=== PATIENT | male | born 1950 | race Caucasian/White ===

== ENCOUNTER 2023-07-12 13:51 | Observation (INO) ==
[2023-07-12 15:11] LABS: BASOPHILS # (AUTO) 0.1 X10^3/uL (0.0-0.1); BASOPHILS % (AUTO) 0.8 % (0.2-1.0); EOSINOPHILS # (AUTO) 0.3 x10^3/uL (0.0-0.2); EOSINOPHILS % (AUTO) 3.5 % (0.9-2.9); HEMATOCRIT 42.6 % (42.0-54.0); HEMOGLOBIN 14.2 g/dL (13.5-18.0); LYMPHOCYTES # (AUTO) 2.7 X10^3/uL (1.3-2.9); LYMPHOCYTES % (AUTO) 29.9 % (21.0-51.0); MEAN CORPUSCULAR HEMOGLOBIN 29.7 pg (27.0-34.0); MEAN CORPUSCULAR HGB CONC 33.3 g/dL (33.0-35.0); MEAN CORPUSCULAR VOLUME 89.1 fL (80.0-100.0); MEAN PLATELET VOLUME 7.8 fL (7.4-11.0); MONOCYTES # (AUTO) 0.6 x10^3/uL (0.3-0.8); MONOCYTES % (AUTO) 7.2 % (0.0-13.0); NEUTROPHILS # (AUTO) 5.3 x10^3/uL (2.2-4.8); NEUTROPHILS % (AUTO) 58.6 % (42.0-75.0); PLATELET COUNT 212 X10^3/uL (150.0-450.0); RED BLOOD COUNT 4.78 X10^6/uL (4.7-6.0); RED CELL DISTRIBUTION WIDTH 14.4 % (11.6-16.5)
[2023-07-12 15:20] LABS: INR 1.03 (0.8-1.3)
[2023-07-12 15:23] LABS: ALANINE AMINOTRANSFERASE 18 Units/L (12-78); ALBUMIN 3.9 g/dL (3.4-5.0); ALKALINE PHOSPHATASE 91 Units/L (46-116); ASPARTATE AMINO TRANSFERASE 15 Units/L (15-37); BLOOD UREA NITROGEN 14 mg/dL (7-18); CALCIUM 9.3 mg/dL (8.5-10.1); CARBON DIOXIDE 24.4 mmol/L (21-32); CHLORIDE 103 mmol/L (98-107); CHOL/HDL RATIO 2.4 (0.0-5.0); CHOLESTEROL 99 mg/dL (0-200); COR NA(FOR HYPERGLY) 143 mmol/L (136-145); CREATINE KINASE 105 Units/L (39-308); CREATININE 1.39 mg/dL (0.70-1.30); GLUCOSE 163 mg/dL (65-99); HDL CHOLESTEROL 42 mg/dL (40-60); POTASSIUM 4.7 mmol/L (3.5-5.1); SODIUM 141 mmol/L (136-145); TOTAL PROTEIN 7.9 g/dL (6.4-8.2); TRIGLYCERIDES 157 mg/dL (0-150); eGFR NON BLACK RACES 54 (>60)
--- NOTE | 2023-07-12 15:23 | DR.PSYCH ---
HPI Time Seen Time Seen by Provider: 07/12/23 15:23 PCP Primary Care Physician: atiya Complaint Chief Complaint:: woke at 9am as usual but had diff getting to the bathroom and called the spouse to get him up off the toilet. when back to his chair he was seeing animals that were not there. denies headache. able to use both extremities equally but has generalized weakness. this pt is usually very independent and does for his self at home Self Treatment fo Chief Complaint: went to bed at 10pm last night and got up at 9am this am COVID-19 Coronavirus risk:travel/contact w/high risk person: No Has patient experienced Coronavirus symptoms: No Source History Provided: Family Member Mode of Arrival Mode of Arrival: Wheelchair Timing Onset of Chief Complaint: 07/12/23 Context Presents With: Bizarre Behavior and Unclear Thinking Ideation: None Plan: None Medication Compliance: No Quality Quality: Confusion Hallucinations: Visual Associated signs and symptoms Intoxification: None PMH PMH Past Medical History: Yes Past Medical History: Coronary Artery Disease, Diabetes and Hypertension Past Surgical History: Yes Surgical History: Appendectomy, CABG/Valve Surgery and Cholecystectomy Past Surgical History Comment: cabg april 2023 bypasses x4 Family History History of Family Medical Conditions: Yes Family Medical History: Diabetes Mellitus, Cancer, Coronary Artery Disease and Hypertension Social History Alcohol Use: None Do you use any recreational Drugs:: No Lives With: Family Lives Where: Home Travel Risk Coronavirus risk:travel/contact w/high risk person: No Has patient experienced Coronavirus symptoms: No Infectious screening In the last 2 months have you had wt loss of >10#?: NO Have you had fever, night sweats or hemotysis?: No Have you traveled outside the country in the last 6 months?: No Isolation: Standard PE Vitals Vitals: Vital Signs Temperature 97.5 F Pulse Rate 74 Pulse Rate 74 Pulse Rate 75 Pulse Rate 75 Pulse Rate 76 Pulse Rate 77 Pulse Rate 77 Pulse Rate 80 Pulse Rate 84 Respiratory Rate 11 Respiratory Rate 11 Respiratory Rate 11 Respiratory Rate 12 Respiratory Rate 13 Respiratory Rate 14 Respiratory Rate 15 Respiratory Rate 18 Respiratory Rate 16 Blood Pressure 188/89 Blood Pressure 180/86 Blood Pressure 180/86 Blood Pressure 182/88 Blood Pressure 166/82 Blood Pressure 142/79 O2 Sat by Pulse Oximetry 98 O2 Sat by Pulse Oximetry 98 O2 Sat by Pulse Oximetry 98 O2 Sat by Pulse Oximetry 97 O2 Sat by Pulse Oximetry 98 O2 Sat by Pulse Oximetry 99 O2 Sat by Pulse Oximetry 96 ROR Labs Reviewed 07/12/23 15:03 07/12/23 15:03 Laboratory: WBC 9.0 X10^3/uL (3.6-10.0) 07/12/23 15:03 RBC 4.78 X10^6/uL (4.7-6.0) 07/12/23 15:03 Hgb 14.2 g/dL (13.5-18.0) 07/12/23 15:03 Hct 42.6 % (42.0-54.0) 07/12/23 15:03 MCV 89.1 fL (80.0-100.0) 07/12/23 15:03 MCH 29.7 pg (27.0-34.0) 07/12/23 15:03 MCHC 33.3 g/dL (33.0-35.0) 07/12/23 15:03 RDW 14.4 % (11.6-16.5) 07/12/23 15:03 Plt Count 212 X10^3/uL (150.0-450.0) 07/12/23 15:03 MPV 7.8 fL (7.4-11.0) 07/12/23 15:03 Neut % (Auto) 58.6 % (42.0-75.0) 07/12/23 15:03 Lymph % (Auto) 29.9 % (21.0-51.0) 07/12/23 15:03 Esmeralda % (Auto) 7.2 % (0.0-13.0) 07/12/23 15:03 Eos % (Auto) 3.5 % (0.9-2.9) H 07/12/23 15:03 Baso % (Auto) 0.8 % (0.2-1.0) 07/12/23 15:03 Neut # (Auto) 5.3 x10^3/uL (2.2-4.8) H 07/12/23 15:03 Lymph # (Auto) 2.7 X10^3/uL (1.3-2.9) 07/12/23 15:03 Esmeralda # (Auto) 0.6 x10^3/uL (0.3-0.8) 07/12/23 15:03 Eos # (Auto) 0.3 x10^3/uL (0.0-0.2) H 07/12/23 15:03 Baso # (Auto) 0.1 X10^3/uL (0.0-0.1) 07/12/23 15:03 Absolute Nucleated RBC 0.2 /100WBC 07/12/23 15:03 PT 13.3 SECONDS (11.8-14.3) 07/12/23 15:03 INR Target Range - 07/12/23 15:03 INR 1.03 (0.8-1.3) 07/12/23 15:03 APTT 28.3 SECONDS (22.9-36.5) 07/12/23 15:03 PTT Comment - 07/12/23 15:03 Fibrinogen 425 mg/dL (239-489) 07/12/23 15:03 Sodium 141 mmol/L (136-145) 07/12/23 15:03 Corrected Sodium 143 mmol/L (136-145) 07/12/23 15:03 Potassium 4.7 mmol/L (3.5-5.1) 07/12/23 15:03 Chloride 103 mmol/L (98-107) 07/12/23 15:03 Carbon Dioxide 24.4 mmol/L (21-32) 07/12/23 15:03 BUN 14 mg/dL (7-18) 07/12/23 15:03 Creatinine 1.39 mg/dL (0.70-1.30) H 07/12/23 15:03 Est GFR (MDRD) Af Amer > 60 (>60) 07/12/23 15:03 Est GFR (MDRD) Non-Af 54 (>60) L 07/12/23 15:03 Glucose 163 mg/dL (65-99) H 07/12/23 15:03 Calcium 9.3 mg/dL (8.5-10.1) 07/12/23 15:03 Corrected Calcium TNP 07/12/23 15:03 Total Bilirubin 0.20 mg/dL (0.2-1.0) 07/12/23 15:03 AST 15 Units/L (15-37) 07/12/23 15:03 ALT 18 Units/L (12-78) 07/12/23 15:03 Alkaline Phosphatase 91 Units/L (46-116) 07/12/23 15:03 Creatine Kinase 105 Units/L (39-308) 07/12/23 15:03 Troponin I High Sens 13.4 ng/L (4.0-60.0) 07/12/23 15:03 Total Protein 7.9 g/dL (6.4-8.2) 07/12/23 15:03 Albumin 3.9 g/dL (3.4-5.0) 07/12/23 15:03 Globulin 4.0 g/dL (2.5-4.5) 07/12/23 15:03 Albumin/Globulin Ratio 1.0 Ratio (1.1-2.1) L 07/12/23 15:03 Triglycerides 157 mg/dL (0-150) H 07/12/23 15:03 Cholesterol 99 mg/dL (0-200) 07/12/23 15:03 LDL Cholesterol, Calc 26 mg/dL (0-100) 07/12/23 15:03 HDL Cholesterol 42 mg/dL (40-60) 07/12/23 15:03 Cholesterol/HDL Ratio 2.4 (0.0-5.0) 07/12/23 15:03 Opioid Opioid Risk Tool Age (Anurag box if 16-45): No History of Preadolescent Sexual Abuse: No Total: 0 Total Score Risk Category: Low Risk Copyright: Luis Enrique MATOS predicting aberrant behaviors Discharge Plan Diagnosis Discharge Problem: Jose Manuel Bonnet syndrome, Weakness Discharge Plan Patient Disposition: 09 ADMITTED INPATIENT Condition: Stable Orders to Discharge Patient Discharge Orders: Transfer (Routine); Ordered 07/12/23 Ordered By: NICK PERKINS
--- NOTE | 2023-07-12 15:27 | CT ---
EXAM: BRAIN W/O CON HISTORY: hallucinations, weakness, poss stroke; COMPARISON: Head CT examination dated January 02, 2023 TECHNIQUE: Multiple axial images of the head were obtained from the skull base to the vertex without administrat ion of IV contrast. Sagittal and coronal reformatted images were performed. Automated exposure control (AEC) was utilized to adjust the MA and/or kV. FINDINGS: There is moderate sulcal and cisternal prominence as well as atherosclerotic change in the proximal i ntracranial carotid and vertebral arteries, which is not out of proportion to the patient's stated ag e. There is diffuse CT density alteration seen in the periventricular white matter of the high and mi d-convexity, which is likely in the setting of small vessel disease and not out of proportion to the patient's stated age. There is no pathologic ventricular dilatation without evidence for hydrocephalu s or herniation syndrome. No midline shift is evident. No acute intraparenchymal hemorrhage or mass c an be identified. If there remains a strong concern for any intra-cranial neoplasm, then follow-up wi th CT or MR imaging of the brain would be more sensitive to exclude any intra-cranial mass lesion. N o extra-axial fluid collections are seen. No alteration in the attenuation of the brain parenchyma ca n be identified to suggest acute or subacute ischemic change. Also, if clinical symptoms are concerni ng for an acute CVA, then follow-up MRI with DWI sequencing is recommended. The extracranial structur es are unremarkable. The paranasal sinuses and mastoid air cells are relatively clear. IMPRESSION: 1. No acute intracranial process or acute bleed identified. If there remains strong clinical concern for an acute CVA/ischemic event in this setting, then follow-up brain MRI with diffusion-weighted se quencing should be considered to definitively exclude acute cerebral ischemia, based on medical histo ry and neurological assessment. 2. Age-appropriate intra-cranial changes of advancing age. THIS IS AN ELECTRONICALLY VERIFIED FINAL REPORT 07/12/2023 3:23 PM - Electronically signed by Pierce Ashley MD
[2023-07-12] MEDS: NS 1,000 ML IV 1,000 ML IV SCH ×2 (15:53→21:42)
--- NOTE | 2023-07-12 16:21 | EKG ---
Test Reason : poss stroke Blood Pressure : */* mmHG Vent. Rate : 77 BPM Atrial Rate : 77 BPM P-R Int : 172 ms QRS Dur : 76 ms QT Int : 390 ms P-R-T Axes : 25 -1 139 degrees QTc Int : 441 ms Normal sinus rhythm Minimal voltage criteria for LVH, may be normal variant ( R in aVL ) Inferior infarct (cited on or before 02-JAN-2023) Cannot rule out Anterior infarct , age undetermined Abnormal ECG When compared with ECG of 02-JAN-2023 21:14, Inverted T waves have replaced nonspecific T wave abnormality in Lateral leads Confirmed by Sharath Tong MD ([id number]) on 07/13/2023 7:35:57 AM Referred By: Confirmed By: Sharath Tong MD
--- NOTE | 2023-07-12 16:35 | MRI ---
EXAM: BRAIN W/O CON HISTORY: R/O STROKE; COMPARISON: Head CT 07/12/2023 TECHNIQUE: Multiplanar multisequence MRI of the brain was obtained without contrast using standard departmental protocol. FINDINGS: Diffusion sequences show no abnormal signal. No evidence for acute ischemia. Minimal age-related findings include central and cortical atrophy with abnormal signal in the periven tricular white matter, most likely the micro-ischemic changes of aging. Otherwise batista and white matter have normal differentiation. There is no mass, shift, or hemorrhage. Cerebellar tonsils are at an appropriate level. There is normal signal flow void in the central vessels. No abnormal signal on susceptibility sequen anshul. No fluid in the sinuses or mucosal thickening to suggest sinusitis. There is no mastoid effusion. IMPRESSION: 1. No acute findings THIS IS AN ELECTRONICALLY VERIFIED FINAL REPORT 07/12/2023 4:32 PM - Electronically signed by Cash Cedillo MD
--- NOTE | 2023-07-12 16:41 | RAD ---
EXAM: CHEST, 1 VIEW HISTORY: POSS CVA; COMPARISON: 01/02/2023 FINDINGS: Prior median sternotomy. Multiple surgical clips project over the left hemithorax. The cardiac silh ouette is unremarkable . The lungs are clear without focal infiltrate or effusion. The bony thorax i s unremarkable. IMPRESSION: No acute cardiopulmonary disease. THIS IS AN ELECTRONICALLY VERIFIED FINAL REPORT 07/12/2023 4:38 PM - Electronically signed by Butch Glasgow MD
[2023-07-12] MEDS: APRESOLINE INJ 20 MG VIAL IVP ONE ×2 (19:25→20:12)
[2023-07-12 21:26] VITALS: BMI 24.9
--- NOTE | 2023-07-13 02:10 | TELESTROKE ---
[facility] Consult Date of Consult Date of Exam: 07/13/23 Time of Arrival to the ED: 02:10 Allergies Allergies Allergy/AdvReac Type Severity Reaction Status Date / Time No Known Drug Allergies Allergy Unknown Verified 07/12/23 14:35 Vital Signs Vital Signs: Temp Pulse Pulse Resp BP BP Pulse Ox 07/13/23 00:00 98.6 F 87 20 139/63 97 07/12/23 21:00 07/12/23 21:12 07/12/23 20:55 97.6 F 94 H 22 145/67 99 07/12/23 20:30 95 H 14 98 07/12/23 20:30 139/65 07/12/23 20:15 90 26 H 98 07/12/23 20:11 177/71 07/12/23 20:11 88 17 98 07/12/23 20:00 198/75 07/12/23 20:00 87 14 99 07/12/23 19:45 83 14 98 07/12/23 19:44 179/84 07/12/23 19:44 84 16 99 07/12/23 19:30 79 12 99 07/12/23 19:30 192/93 07/12/23 19:30 192/93 07/12/23 19:30 79 12 99 07/12/23 19:18 203/98 07/12/23 19:18 77 13 98 07/12/23 19:15 78 11 L 98 07/12/23 19:02 182/91 07/12/23 19:02 78 21 98 07/12/23 19:00 215/95 07/12/23 19:00 78 14 98 07/12/23 18:45 76 19 98 07/12/23 18:32 200/92 07/12/23 18:32 76 12 99 07/12/23 18:30 75 13 99 07/12/23 18:15 72 12 97 07/12/23 18:00 73 11 L 98 07/12/23 18:00 194/91 07/12/23 17:45 74 11 L 98 07/12/23 17:30 188/89 07/12/23 17:30 74 11 L 98 07/12/23 17:15 75 11 L 98 07/12/23 17:00 75 12 97 07/12/23 17:00 180/86 07/12/23 17:00 180/86 07/12/23 16:50 76 13 98 07/12/23 16:30 77 14 07/12/23 16:27 77 15 07/12/23 16:26 182/88 07/12/23 15:00 80 18 166/82 99 07/12/23 14:39 97.5 F L 84 16 142/79 96 O2 Del Method 07/13/23 00:00 Room Air 07/12/23 21:00 Room Air 07/12/23 21:12 Room Air 07/12/23 20:55 Room Air 07/12/23 20:30 07/12/23 20:30 07/12/23 20:15 07/12/23 20:11 07/12/23 20:11 07/12/23 20:00 07/12/23 20:00 07/12/23 19:45 07/12/23 19:44 07/12/23 19:44 07/12/23 19:30 07/12/23 19:30 07/12/23 19:30 07/12/23 19:30 07/12/23 19:18 07/12/23 19:18 07/12/23 19:15 07/12/23 19:02 07/12/23 19:02 07/12/23 19:00 07/12/23 19:00 07/12/23 18:45 07/12/23 18:32 07/12/23 18:32 07/12/23 18:30 07/12/23 18:15 07/12/23 18:00 07/12/23 18:00 07/12/23 17:45 07/12/23 17:30 07/12/23 17:30 07/12/23 17:15 07/12/23 17:00 07/12/23 17:00 07/12/23 17:00 07/12/23 16:50 07/12/23 16:30 07/12/23 16:27 07/12/23 16:26 07/12/23 15:00 07/12/23 14:39 History of Present Illness History of Present Illness: [facility] Patient Name:Patrice Gonzales Date of :1950 Identification Number: Date of Service:07/12/2023 14:52:00 Diagnosis:R44.1 - Visual hallucinations Impression: 72 year old male with history of age-related macular degeneration presenting with visual release hallucinations, also known as Jose Manuel Bonnet syndrome. Our recommendations are outlined below. Recommendations: Stroke/Telemetry Floor Neuro Checks Bedside Swallow Eval DVT Prophylaxis IV Fluids, Normal Saline Head of Bed 30 Degrees Euglycemia and Avoid Hyperthermia (PRN Acetaminophen) Continue home meds. MRI brain without contrast to rule out alternative etiology (e.g. stroke). Mainstay of treat for Jose Manuel Bonnet syndrome is reassurance that these are not psychotic hallucinations and that they are related to patient's vision problem. Sometimes melatonin or quetiapine have been shown to help. Sign Out: Discussed with Emergency Department Provider Advanced Imaging: Advanced Imaging Deferred because: Non-disabling symptoms as verified by the patient; no cortical signs so not consistent with LVO Stroke not suspected with clinical presentation and exam Metrics: Last Known Well: 07/11/2023 22:00:00 [facility] Notification Time: 07/12/2023 14:51:59 Arrival Time: 07/13/2023 13:51:00 Stamp Time: 07/12/2023 14:52:00 Initial Response Time: 07/12/2023 15:00:05Symptoms: visual hallucinations and generalized weakness. Initial patient interaction: 07/12/2023 15:04:11 NIHSS Assessment Completed: 07/12/2023 15:10:00Patient is not a candidate for Thrombolytic. Thrombolytic Medical Decision: 07/12/2023 15:10:00Patient was not deemed candidate for Thrombolytic because of following reasons: Last Well Known Above 4.5 Hours. 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 I personally Reviewed the CT Head and it Showed no acute infarct or hemorrhage. Primary Provider Notified of Diagnostic Impression and Management Plan on: 07/12/2023 15:30:00 History of Present Illness:Patient is a 72 year old Male. Patient was brought by private transportation with symptoms of visual hallucinations and generalized weakness. Patient is a 72 year old male with a history of age-related macular degeneration, DM presenting with acute onset of visual hallucinations. Started yesterday but recurred during a doctor's visit today, largely seeing faces of people and animals, sometime twisted or distorted. Patient is aware that these are not real. Patient denies any focal or lateralized weakness, numbness, aphasia or dysarthria. Past Medical History: Hypertension Diabetes Mellitus Coronary Artery Disease Medications: No Anticoagulant use Antiplatelet use:Yesaspirin Reviewed EMR for current medications Allergies: Reviewed Social History: Smoking: No Family History: There is no family history of premature cerebrovascular disease pertinent to this consultation ROS : 14 Points Review of Systems was performed and was negative except mentioned in HPI. Past Surgical History: There Is No Surgical History Contributory To Todays Visit Examination: BP(139/67),Pulse(87),Blood Glucose(151) 1A: Level of Consciousness - Alert; keenly responsive+ 0 1B: Ask Month and Age - Both Questions Right+ 0 1C: Blink Eyes & Squeeze Hands - Performs Both Tasks+ 0 2: Test Horizontal Extraocular Movements - Normal+ 0 3: Test Visual Plata - No Visual Loss+ 0 4: Test Facial Palsy (Use Grimace if Obtunded) - Normal symmetry+ 0 5A: Test Left Arm Motor Drift - No Drift for 10 Seconds+ 0 5B: Test Right Arm Motor Drift - No Drift for 10 Seconds+ 0 6A: Test Left Leg Motor Drift - No Drift for 5 Seconds+ 0 6B: Test Right Leg Motor Drift - No Drift for 5 Seconds+ 0 7: Test Limb Ataxia (FNF/Heel-Melchor) - No Ataxia+ 0 8: Test Sensation - Normal; No sensory loss+ 0 9: Test Language/Aphasia - Normal; No aphasia+ 0 10: Test Dysarthria - Normal+ 0 11: Test Extinction/Inattention - No abnormality+ 0 NIHSS Score:0 Pre-Morbid Modified Nell Scale:3 Points = Moderate disability; requiring some help, but able to walk without assistance Spoke with :Dr. Vidal This consult was conducted in real time using interactive audio and video technology. Patient was informed of the technology being used for this visit and agreed to proceed. Patient located in hospital and provider located at home/office setting. Patient is being evaluated for possible acute neurologic impairment and high probability of imminent or life-threatening deterioration. I spent total of 45 minutes providing care to this patient, including time for face to face visit via telemedicine, review of medical records, imaging studies and discussion of findings with providers, the patient and/or family. Dr Reed Butler [facility] For Inpatient follow-up with [facility] physician please call [facility] . This is not an outpatient service. Post hospital discharge, please contact hospital directly. Please call or reconsult our service if there are any clinical or diagnostic changes. Medical Decision Making 07/12/23 15:03 07/12/23 15:03 Labs: Laboratory Results - last 24 hr 07/12/23 15:03 WBC 9.0 RBC 4.78 Hgb 14.2 Hct 42.6 MCV 89.1 MCH 29.7 MCHC 33.3 RDW 14.4 Plt Count 212 MPV 7.8 Neut % (Auto) 58.6 Lymph % (Auto) 29.9 Beadle % (Auto) 7.2 Eos % (Auto) 3.5 H Baso % (Auto) 0.8 Neut # (Auto) 5.3 H Lymph # (Auto) 2.7 Beadle # (Auto) 0.6 Eos # (Auto) 0.3 H Baso # (Auto) 0.1 Absolute Nucleated RBC 0.2 PT 13.3 INR Target Range - INR 1.03 APTT 28.3 PTT Comment - Fibrinogen 425 Sodium 141 Corrected Sodium 143 Potassium 4.7 Chloride 103 Carbon Dioxide 24.4 BUN 14 Creatinine 1.39 H Est GFR (MDRD) Af Amer > 60 Est GFR (MDRD) Non-Af 54 L Glucose 163 H Calcium 9.3 Corrected Calcium TNP Total Bilirubin 0.20 AST 15 ALT 18 Alkaline Phosphatase 91 Creatine Kinase 105 Troponin I High Sens 13.4 Total Protein 7.9 Albumin 3.9 Globulin 4.0 Albumin/Globulin Ratio 1.0 L Triglycerides 157 H Cholesterol 99 LDL Cholesterol, Calc 26 HDL Cholesterol 42 Cholesterol/HDL Ratio 2.4
[2023-07-13 03:02] LABS: BILIRUBIN,URINE NEGATIVE (NEGATIVE); BLOOD/HEMOGLOBIN,URINE NEGATIVE (NEGATIVE); GLUCOSE, URINE NEGATIVE (NEGATIVE); KETONES,URINE 2+ (NEGATIVE); LEUKOCYTE ESTERASE ,URINE NEGATIVE (NEGATIVE); NITRITES,URINE NEGATIVE (NEGATIVE); PROTEIN,URINE 3+ (NEGATIVE); UROBILINOGEN,URINE NORMAL (NORMAL)
[2023-07-13 03:07] LABS: APPEARANCE,URINE CLEAR (CLEAR); BACTERIA,URINE NEGATIVE /HPF (NEGATIVE); COLOR,URINE YELLOW (YELLOW); HYALINE CASTS, URINE FEW /LPF (NEGATIVE); RBC,URINE 0-2 /HPF (0-3); SQUAMOUS EPITHELIAL CELL,UR RARE /HPF (NEGATIVE)
[2023-07-13 06:14] LABS: BASOPHILS % (AUTO) 0.6 % (0.2-1.0); EOSINOPHILS # (AUTO) 0.2 x10^3/uL (0.0-0.2); EOSINOPHILS % (AUTO) 3.4 % (0.9-2.9); HEMATOCRIT 36.4 % (42.0-54.0); HEMOGLOBIN 12.4 g/dL (13.5-18.0); LYMPHOCYTES % (AUTO) 31.6 % (21.0-51.0); MEAN CORPUSCULAR HEMOGLOBIN 29.9 pg (27.0-34.0); MEAN CORPUSCULAR HGB CONC 34.2 g/dL (33.0-35.0); MEAN CORPUSCULAR VOLUME 87.5 fL (80.0-100.0); MEAN PLATELET VOLUME 7.8 fL (7.4-11.0); MONOCYTES # (AUTO) 0.5 x10^3/uL (0.3-0.8); MONOCYTES % (AUTO) 7.2 % (0.0-13.0); NEUTROPHILS # (AUTO) 3.6 x10^3/uL (2.2-4.8); NEUTROPHILS % (AUTO) 57.2 % (42.0-75.0); PLATELET COUNT 170 X10^3/uL (150.0-450.0); RED BLOOD COUNT 4.16 X10^6/uL (4.7-6.0); WHITE BLOOD COUNT 6.3 X10^3/uL (3.6-10.0)
[2023-07-13 06:43] LABS: ALBUMIN 3.2 g/dL (3.4-5.0); ALKALINE PHOSPHATASE 79 Units/L (46-116); ASPARTATE AMINO TRANSFERASE 13 Units/L (15-37); CALCIUM 8.6 mg/dL (8.5-10.1); CARBON DIOXIDE 26.9 mmol/L (21-32); COR CA(FOR HYPOALB) 9.2 mg/dL (8.5-10.1); CREATININE 1.02 mg/dL (0.70-1.30); GLUCOSE 123 mg/dL (65-99); TOTAL PROTEIN 6.5 g/dL (6.4-8.2); eGFR NON BLACK RACES > 60 (>60)
[2023-07-13 07:23] LABS: CHLORIDE 103 mmol/L (98-107); COR NA(FOR HYPERGLY) 142 mmol/L (136-145); POTASSIUM 3.8 mmol/L (3.5-5.1); SODIUM 141 mmol/L (136-145)
--- NOTE | 2023-07-13 09:56 | DR.H&P ---
H&P History & Physical for Day of: H&P Date: 07/13/23 Chief Complaint Chief Complaint: weakness, visual hallucinations History of Present Illness History of Present Illness: Mr Gonzales is a 72y/o male with a PMH of CAD s/p CABG, DM, HTN, HLD and macular degeneration presented with generalized weakness, elevated BP and visual hallucinations. Patient was seeing animals that were not present. He had CABG in April 2023 in [place]. His BP medications were changed and since then his BP has been elevated. In the ER, trop (-), CXR (-). Brain CT and MRI-brain were both negative for any acute changes. Tele-neuro consult was done and stated that patient's visual hallucinations are likely part of the macular degeneration that patient has. He was given IV hydralazine and admitted for further management. He was kept NPO. He is feeling better this morning. He denies any trouble with swallowing or any focal neurological symptoms. His BP was 187/91. Labs/imaging reviewed - Hgb 12.4 BUN/Cr: 15/1.02 Trop (-) -UA (-) -CXR: no acute process -CT-head and MRI-brain: no acute changes Plan: Continue telemetry, start ADA diet, resume home medications. Monitor BP. Patient used to be on amlodipine and lisinopril before but now takes HCTZ and metoprolol tartrate. Stop IVF. Will hold HCTZ, start amlodipine 10 mg daily. Replace electrolytes as per protocol. PT consult. Monitor AM labs/imaging. Past Medical History Past Medical History: Coronary Artery Disease, Diabetes and Hypertension Past Surgical History Surgical History: Appendectomy, CABG/Valve Surgery, Cholecystectomy and Other Family History Family Medical History: Diabetes Mellitus, Cancer, Coronary Artery Disease and Hypertension Social History Does patient currently use any type of tobacco product: No Type of Tobacco Use: None Does any household member use tobacco: No Alcohol Use: None Drug Use: None Medications Home Medications: Home Medications Medication Instructions Recorded Confirmed Type famotidine 20 mg tablet 20 mg PO BID 01/02/23 07/12/23 History hydrochlorothiazide 25 mg tablet 25 mg PO QDAY 01/02/23 07/12/23 History insulin NPH isoph U-100 human 100 10 unit subcut BID 01/02/23 07/12/23 History unit/mL subcutaneous suspension (Humulin N NPH U-100 Insulin (isophane susp)) metformin 1,000 mg tablet 1,000 mg PO BID 01/02/23 07/12/23 History simvastatin 20 mg tablet 20 mg PO QPM 01/02/23 07/12/23 History acetaminophen 300 mg-codeine 30 mg 1 tab PO QID PRN 07/12/23 07/12/23 History tablet aspirin 81 mg tablet,delayed 81 mg PO QDAY 07/12/23 07/12/23 History release docusate sodium 100 mg capsule 100 - 300 mg PO QDAY PRN 07/12/23 07/12/23 History dorzolamide 2 % eye drops 1 drp ophthalmic (eye) BID 07/12/23 07/12/23 History gabapentin 400 mg capsule 400 mg PO QID 07/12/23 07/12/23 History levetiracetam 750 mg 750 mg PO QDAY 07/12/23 07/12/23 History tablet,extended release 24 hr metoprolol tartrate 25 mg tablet 12.5 mg PO BID 07/12/23 07/12/23 History Allergies Allergies Allergy/AdvReac Type Severity Reaction Status Date / Time No Known Drug Allergies Allergy Unknown Verified 07/12/23 14:35 Labs 07/13/23 05:34 07/13/23 05:34 Labs: Laboratory WBC 6.3 X10^3/uL (3.6-10.0) 07/13/23 05:34 RBC 4.16 X10^6/uL (4.7-6.0) L 07/13/23 05:34 Hgb 12.4 g/dL (13.5-18.0) L 07/13/23 05:34 Hct 36.4 % (42.0-54.0) L 07/13/23 05:34 MCV 87.5 fL (80.0-100.0) 07/13/23 05:34 MCH 29.9 pg (27.0-34.0) 07/13/23 05:34 MCHC 34.2 g/dL (33.0-35.0) 07/13/23 05:34 RDW 14.0 % (11.6-16.5) 07/13/23 05:34 Plt Count 170 X10^3/uL (150.0-450.0) 07/13/23 05:34 MPV 7.8 fL (7.4-11.0) 07/13/23 05:34 Neut % (Auto) 57.2 % (42.0-75.0) 07/13/23 05:34 Lymph % (Auto) 31.6 % (21.0-51.0) 07/13/23 05:34 [place] % (Auto) 7.2 % (0.0-13.0) 07/13/23 05:34 Eos % (Auto) 3.4 % (0.9-2.9) H 07/13/23 05:34 Baso % (Auto) 0.6 % (0.2-1.0) 07/13/23 05:34 Neut # (Auto) 3.6 x10^3/uL (2.2-4.8) 07/13/23 05:34 Lymph # (Auto) 2.0 X10^3/uL (1.3-2.9) 07/13/23 05:34 [place] # (Auto) 0.5 x10^3/uL (0.3-0.8) 07/13/23 05:34 Eos # (Auto) 0.2 x10^3/uL (0.0-0.2) 07/13/23 05:34 Baso # (Auto) 0.0 X10^3/uL (0.0-0.1) 07/13/23 05:34 Absolute Nucleated RBC 0.1 /100WBC 07/13/23 05:34 PT 13.3 SECONDS (11.8-14.3) 07/12/23 15:03 INR Target Range - 07/12/23 15:03 INR 1.03 (0.8-1.3) 07/12/23 15:03 APTT 28.3 SECONDS (22.9-36.5) 07/12/23 15:03 PTT Comment - 07/12/23 15:03 Fibrinogen 425 mg/dL (239-489) 07/12/23 15:03 Sodium 141 mmol/L (136-145) 07/13/23 05:34 Corrected Sodium 142 mmol/L (136-145) 07/13/23 05:34 Potassium 3.8 mmol/L (3.5-5.1) 07/13/23 05:34 Chloride 103 mmol/L (98-107) 07/13/23 05:34 Carbon Dioxide 26.9 mmol/L (21-32) 07/13/23 05:34 BUN 15 mg/dL (7-18) 07/13/23 05:34 Creatinine 1.02 mg/dL (0.70-1.30) 07/13/23 05:34 Est GFR (MDRD) Af Amer > 60 (>60) 07/13/23 05:34 Est GFR (MDRD) Non-Af > 60 (>60) 07/13/23 05:34 Glucose 123 mg/dL (65-99) H 07/13/23 05:34 POC Glucose (mg/dL) 130 mg/dL (65-99) H 07/13/23 05:54 Calcium 8.6 mg/dL (8.5-10.1) 07/13/23 05:34 Corrected Calcium 9.2 mg/dL (8.5-10.1) 07/13/23 05:34 Total Bilirubin 0.30 mg/dL (0.2-1.0) 07/13/23 05:34 AST 13 Units/L (15-37) L 07/13/23 05:34 ALT 18 Units/L (12-78) 07/12/23 15:03 Alkaline Phosphatase 79 Units/L (46-116) 07/13/23 05:34 Creatine Kinase 105 Units/L (39-308) 07/12/23 15:03 Troponin I High Sens 13.4 ng/L (4.0-60.0) 07/12/23 15:03 Total Protein 6.5 g/dL (6.4-8.2) 07/13/23 05:34 Albumin 3.2 g/dL (3.4-5.0) L 07/13/23 05:34 Globulin 3.3 g/dL (2.5-4.5) 07/13/23 05:34 Albumin/Globulin Ratio 1.0 Ratio (1.1-2.1) L 07/13/23 05:34 Triglycerides 157 mg/dL (0-150) H 07/12/23 15:03 Cholesterol 99 mg/dL (0-200) 07/12/23 15:03 LDL Cholesterol, Calc 26 mg/dL (0-100) 07/12/23 15:03 HDL Cholesterol 42 mg/dL (40-60) 07/12/23 15:03 Cholesterol/HDL Ratio 2.4 (0.0-5.0) 07/12/23 15:03 Specimen Type Clean catch urine 07/13/23 02:45 Urine Color Yellow (YELLOW) 07/13/23 02:45 Urine Appearance Clear (CLEAR) 07/13/23 02:45 Urine pH 6.0 (5.0 - 8.0) 07/13/23 02:45 Ur Specific [place] 1.020 (1.000-1.030) 07/13/23 02:45 Urine Protein 3+ (NEGATIVE) 07/13/23 02:45 Urine Glucose (UA) Negative (NEGATIVE) 07/13/23 02:45 Urine Ketones 2+ (NEGATIVE) 07/13/23 02:45 Urine Blood Negative (NEGATIVE) 07/13/23 02:45 Urine Nitrite Negative (NEGATIVE) 07/13/23 02:45 Urine Bilirubin Negative (NEGATIVE) 07/13/23 02:45 Urine Urobilinogen Normal (NORMAL) 07/13/23 02:45 Ur Leukocyte Esterase Negative (NEGATIVE) 07/13/23 02:45 Urine RBC 0-2 /HPF (0-3) 07/13/23 02:45 Urine WBC None seen /HPF (0-5) 07/13/23 02:45 Ur Squamous Epith Cells Rare /HPF (NEGATIVE) 07/13/23 02:45 Urine Bacteria Negative /HPF (NEGATIVE) 07/13/23 02:45 Hyaline Casts Few /LPF (NEGATIVE) 07/13/23 02:45 Urine Mucus Few /HPF (NEGATIVE) 07/13/23 02:45 Ur Culture Indicated? No/not indicated 07/13/23 02:45 Review of Systems Constitutional: Weakness Eyes: Vision Change ENT: No Symptoms Reported Respiratory: No Symptoms Reported Cardiovascular: No Symptoms Reported Gastrointestinal: No Symptoms Reported Genitourinary: No Symptoms Reported Musculoskeletal: Back Pain Skin: No Symptoms Reported Neurological: No Symptoms Reported Physical Exam Vital Signs: Vital Signs Temperature 97.0 F Temperature 97.8 F Pulse Rate [Brachial] 74 Pulse Rate [Brachial] 78 Respiratory Rate 15 Respiratory Rate 20 Blood Pressure [Right Arm] 187/91 Blood Pressure [Right Arm] 169/79 O2 Sat by Pulse Oximetry 96 O2 Sat by Pulse Oximetry 97 Oriented: Normal Eyes: Normal Throat: Normal Respiratory: RLL Rales and LLL Rales Cardiovascular: Normal Auscultation: Bowel Sounds: Normal Palpation: Normal Tenderness: Normal Skin: Normal Musculoskeletal: Back:Paraspinous Psychiatric: Normal Mood Description: Calm Affect: Normal Speech Pattern: Clear and Appropriate Assessment/Plan (1) Accelerated essential hypertension: Status: Acute (2) Dehydration: Status: Acute (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 transplanted heart: [place] heart Qualified Code(s): I25.810 - Atherosclerosis of coronary artery bypass graft(s) without angina pectoris Status: Acute Review H&P Reviewed: Yes Patient was examined?: Yes
[2023-07-13] MEDS ORDERED: HYDROCHLOROTHIAZIDE 25 MG TAB PO SCH (10:00)
[2023-07-13] MEDS: LEVETIRACETAM 750 MG PO SCH (10:00)
[2023-07-13] MEDS: TRUSOPT PLUS (OPHTH) OP SCH (10:00)
[2023-07-13] MEDS: PEPCID TAB 20 MG PO SCH (10:50)
[2023-07-13] MEDS: NORVASC TAB 10 MG PO SCH (10:50)
[2023-07-13] MEDS: ASPIRIN EC 81 MG PO SCH (10:50)
[2023-07-13] MEDS: LOPRESSOR TAB 25 MG PO SCH (11:03)
[2023-07-13 12:34] LABS: ALANINE AMINOTRANSFERASE 16 Units/L (12-78)
[2023-07-13 13:08] LABS: BLOOD UREA NITROGEN 15 mg/dL (7-18)
[2023-07-13] MEDS: NovoLIN R (or HumuLIN R) SUBCUT PRN (18:04)
[2023-07-13] MEDS: TORADOL 15 MG VIAL IVP PRN (18:06)
[2023-07-13] MEDS ORDERED: GLUCOPHAGE ONE (20:12)
[2023-07-13] MEDS: GLUCOPHAGE PO SCH (20:34)
[2023-07-13] MEDS: ZOCOR TAB 20 MG PO SCH (20:35)
[2023-07-13] MEDS: SNACK - Diabetic Appropriate PO SCH (20:51)
[2023-07-13] MEDS: PATIENT'S HOME MEDICATION OP SCH (21:13)
[2023-07-14 05:57] VITALS: RESP 20
[2023-07-14 06:24] LABS: BASOPHILS % (AUTO) 0.7 % (0.2-1.0); EOSINOPHILS # (AUTO) 0.2 x10^3/uL (0.0-0.2); EOSINOPHILS % (AUTO) 3.8 % (0.9-2.9); HEMATOCRIT 36.1 % (42.0-54.0); HEMOGLOBIN 12.4 g/dL (13.5-18.0); LYMPHOCYTES # (AUTO) 1.5 X10^3/uL (1.3-2.9); LYMPHOCYTES % (AUTO) 29.2 % (21.0-51.0); MEAN CORPUSCULAR HEMOGLOBIN 29.9 pg (27.0-34.0); MEAN CORPUSCULAR HGB CONC 34.3 g/dL (33.0-35.0); MEAN CORPUSCULAR VOLUME 87.2 fL (80.0-100.0); MEAN PLATELET VOLUME 7.7 fL (7.4-11.0); MONOCYTES # (AUTO) 0.4 x10^3/uL (0.3-0.8); MONOCYTES % (AUTO) 7.8 % (0.0-13.0); NEUTROPHILS # (AUTO) 3.1 x10^3/uL (2.2-4.8); NEUTROPHILS % (AUTO) 58.5 % (42.0-75.0); PLATELET COUNT 168 X10^3/uL (150.0-450.0); RED BLOOD COUNT 4.15 X10^6/uL (4.7-6.0); RED CELL DISTRIBUTION WIDTH 14.1 % (11.6-16.5); WHITE BLOOD COUNT 5.2 X10^3/uL (3.6-10.0)
[2023-07-14 06:57] LABS: CHLORIDE 104 mmol/L (98-107); POTASSIUM 3.6 mmol/L (3.5-5.1); SODIUM 140 mmol/L (136-145)
[2023-07-14 06:58] LABS: BLOOD UREA NITROGEN 14 mg/dL (7-18); CREATININE 1.07 mg/dL (0.70-1.30); eGFR NON BLACK RACES > 60 (>60)
[2023-07-14 06:59] LABS: CALCIUM 8.7 mg/dL (8.5-10.1); COR NA(FOR HYPERGLY) 141 mmol/L (136-145); GLUCOSE 130 mg/dL (65-99); MAGNESIUM 1.6 mg/dL (2.0-2.9)
[2023-07-14] MEDS ORDERED: GLUCOPHAGE ONE (08:29)
[2023-07-14] MEDS ORDERED: CONSULT PHARMACY - POTASSIUM & MAGNESIUM XX SCH (09:00)
[2023-07-14] MEDS: HYDROCHLOROTHIAZIDE 25 MG TAB PO SCH (09:18)
[2023-07-14 09:20] LABS: ALANINE AMINOTRANSFERASE 18 Units/L (12-78); ALBUMIN 3.4 g/dL (3.4-5.0); ALKALINE PHOSPHATASE 74 Units/L (46-116); ASPARTATE AMINO TRANSFERASE 16 Units/L (15-37); TOTAL PROTEIN 6.7 g/dL (6.4-8.2)
[2023-07-14] MEDS: MAG-OX TAB PO SCH (09:44)
[2023-07-14] MEDS: K-DUR TAB 20 MEQ PO SCH (09:44)
[2023-07-14 15:57] VITALS: BP 189/91; PULSE 72; TEMP 98.1; O2SAT 98
== END 2023-07-14 12:50 | disposition home health service (06) ==
LOC: ER 13:51 → MED/SURG 13:51
PROVIDERS: ADMIT Family Medicine; ATTEND Internal Medicine

== ENCOUNTER 2024-04-12 16:15 | Observation (INO) ==
[2024-04-12 16:49] VITALS: BMI 23.8
--- NOTE | 2024-04-12 17:17 | EKG ---
Test Reason : confusion Blood Pressure : */* mmHG Vent. Rate : 104 BPM Atrial Rate : 104 BPM P-R Int : 154 ms QRS Dur : 74 ms QT Int : 306 ms P-R-T Axes : 28 47 184 degrees QTc Int : 402 ms Sinus tachycardia Cannot rule out Anteroseptal infarct (cited on or before 02-JAN-2023) Abnormal ECG When compared with ECG of 12-JUL-2023 16:11, Criteria for Inferior infarct are no longer present Questionable change in initial forces of Septal leads Nonspecific T wave abnormality now evident in Anterior leads Confirmed by Sharath Tong MD ([id number]) on 04/13/2024 6:36:47 AM Referred By: Confirmed By: Sharath Tong MD
[2024-04-12 17:29] LABS: BASOPHILS % (AUTO) 0.8 % (0.2-1.0); EOSINOPHILS # (AUTO) 0.2 x10^3/uL (0.0-0.2); EOSINOPHILS % (AUTO) 3.5 % (0.9-2.9); HEMATOCRIT 41.1 % (42.0-54.0); HEMOGLOBIN 14.4 g/dL (13.5-18.0); LYMPHOCYTES # (AUTO) 0.8 X10^3/uL (1.3-2.9); LYMPHOCYTES % (AUTO) 13.7 % (21.0-51.0); MEAN CORPUSCULAR HEMOGLOBIN 30.6 pg (27.0-34.0); MEAN CORPUSCULAR HGB CONC 35.1 g/dL (33.0-35.0); MEAN CORPUSCULAR VOLUME 87.2 fL (80.0-100.0); MEAN PLATELET VOLUME 8.2 fL (7.4-11.0); MONOCYTES # (AUTO) 0.6 x10^3/uL (0.3-0.8); MONOCYTES % (AUTO) 10.4 % (0.0-13.0); NEUTROPHILS % (AUTO) 71.6 % (42.0-75.0); PLATELET COUNT 63 X10^3/uL (150.0-450.0); RED BLOOD COUNT 4.71 X10^6/uL (4.7-6.0); RED CELL DISTRIBUTION WIDTH 13.9 % (11.6-16.5); WHITE BLOOD COUNT 5.6 X10^3/uL (3.6-10.0)
[2024-04-12 17:32] LABS: INR 1.06 (0.8-1.3)
[2024-04-12 17:42] LABS: ALANINE AMINOTRANSFERASE 70 Units/L (12-78); ALKALINE PHOSPHATASE 95 Units/L (46-116); ASPARTATE AMINO TRANSFERASE 75 Units/L (15-37); BLOOD UREA NITROGEN 20 mg/dL (7-18); CALCIUM 9.3 mg/dL (8.5-10.1); CHLORIDE 99 mmol/L (98-107); COR NA(FOR HYPERGLY) 140 mmol/L (136-145); CREATINE KINASE 75 Units/L (39-308); CREATININE 1.42 mg/dL (0.70-1.30); GLUCOSE 205 mg/dL (65-99); POTASSIUM 4.2 mmol/L (3.5-5.1); SODIUM 137 mmol/L (136-145); TOTAL PROTEIN 7.6 g/dL (6.4-8.2); eGFR NON BLACK RACES 52 (>60)
--- NOTE | 2024-04-12 17:44 | CT ---
EXAM: BRAIN W/O CON HISTORY: trouble getting out of his chair and the pt wasn't able to make it to the bathroom without wetting on the floor. 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 Radiation dose: 888.54 mGy-cm total DLP FINDINGS: No abnormal areas of acute attenuation in the brain parenchyma. Watson-white differentiation remains intact. No intracranial, extra-axial, fluid collection. No hemorrhage. Periventricular chronic microvascular disease. No mass, mass effect or midline shift. Age related brain parenchymal global atrophy. No ventriculomegaly. No acute fracture. Sinuses are well aerated. Mastoid air cells are well aerated. Globes and intra-orbital contents are unremarkable. IMPRESSION: No acute intracranial abnormality identified. THIS IS AN ELECTRONICALLY VERIFIED FINAL REPORT 04/12/2024 5:41 PM - Electronically signed by Donald Hernandez MD
[2024-04-12 19:08] LABS: BILIRUBIN,URINE NEGATIVE (NEGATIVE); BLOOD/HEMOGLOBIN,URINE 1+ (NEGATIVE); GLUCOSE, URINE 4+ (NEGATIVE); KETONES,URINE 1+ (NEGATIVE); LEUKOCYTE ESTERASE ,URINE NEGATIVE (NEGATIVE); NITRITES,URINE NEGATIVE (NEGATIVE); PROTEIN,URINE 2+ (NEGATIVE); UROBILINOGEN,URINE NORMAL (NORMAL)
[2024-04-12 19:16] LABS: APPEARANCE,URINE CLEAR (CLEAR); COLOR,URINE YELLOW (YELLOW)
[2024-04-12 19:17] LABS: BACTERIA,URINE TRACE /HPF (NEGATIVE); RBC,URINE 0-2 /HPF (0-3); SQUAMOUS EPITHELIAL CELL,UR RARE /HPF (NEGATIVE); YEAST,URINE RARE /HPF (NEGATIVE)
--- NOTE | 2024-04-12 19:39 | DR.DIZZY ---
HPI Time seen Time Seen by Provider: 04/12/24 16:59 PCP Primary Care Physician: Rl Complaint Chief Complaint Doctor Comments: 73 yo M, hx of CAD, HTN, DM, states pt was fine this morning when he woke up and pt was able to walk to his chair. About an hour and a half ago she noticed that the pt had trouble getting out of his chair and the pt wasn't able to get out of his chair to walk to the bathroom. noticed that pt was having difficulty speaking, and seemed confused. By arrival to the ER, states that pt slowly began getting better, and by my exam, states that his speech is back to baseline. Denies other complaints. Chief Complaint:: Weakness, Aphasia COVID-19 Coronavirus risk:travel/contact w/high risk person: No Has patient experienced Coronavirus symptoms: No Source History Provided: Patient and Significant Other Mode of Arrival Mode of Arrival: Wheelchair Timing Onset of Chief Complaint: 04/12/24 Context Stroke Symptoms: Aphasia and Acute confusion PMH PMH Past Medical History: Yes Past Medical History: Coronary Artery Disease, Diabetes and Hypertension Past Surgical History: Yes Surgical History: Appendectomy, CABG/Valve Surgery, Cholecystectomy and Other Past Surgical History Comment: Cataracts Family History History of Family Medical Conditions: Yes Family Medical History: Diabetes Mellitus, Cancer, Coronary Artery Disease and Hypertension Social History Alcohol Use: None Do you use any recreational Drugs:: No Lives With: Spouse Lives Where: Home Travel Risk Coronavirus risk:travel/contact w/high risk person: No Has patient experienced Coronavirus symptoms: No Infectious screening Have you traveled outside the country in the last 6 months?: No Isolation: Standard ROS Review of Systems Neurological: Weakness and Speech Problem (expressive aphasia) All Other Systems: Reviewed and Negative PE Vital Signs Vitals: Vital Signs Temperature 98.7 F Pulse Rate 103 Pulse Rate 101 Pulse Rate 103 Pulse Rate 104 Pulse Rate 102 Pulse Rate 104 Pulse Rate 103 Pulse Rate 98 Pulse Rate 105 Respiratory Rate 20 Respiratory Rate 18 Respiratory Rate 16 Blood Pressure 157/78 Blood Pressure 161/78 Blood Pressure 163/88 Blood Pressure 102/64 O2 Sat by Pulse Oximetry 96 O2 Sat by Pulse Oximetry 96 O2 Sat by Pulse Oximetry 97 O2 Sat by Pulse Oximetry 96 O2 Sat by Pulse Oximetry 98 O2 Sat by Pulse Oximetry 98 O2 Sat by Pulse Oximetry 98 O2 Sat by Pulse Oximetry 94 General Limitations: No Limitations General Appearance: Alert and In No Apparent Distress Head Head Exam: Normal Inspection Eyes Eye exam: Normal Appearance ENT ENT Exam: Normal Exam, Normal Oropharynx and Normal External Ear Exam Neck Neck Exam: Normal Inspection and Full ROM Chest Chest Inspection: Normal Inspection Respiratory Respiratory Exam: Normal Lung Sounds Bilat Cardiovascular Cardiovascular Exam: Regular Rate and Normal Rhythm Abdominal Exam Abdominal Exam: Normal Inspection, Normal Bowel Sounds and Soft Rectal Rectal Exam: Deferred Extremeties Extremities Exam: Normal Inspection and Full ROM Back Back Exam: Normal Inspection and Full ROM Neurologic Neurological Exam: Alert and Oriented X3 Psychiatric Psychiatric Exam: Normal Affect and Normal Mood Skin Skin Exam: Warm, Dry, Intact and Normal Color ROR Labs Reviewed Laboratory Results Reviewed?: Yes 04/12/24 17:06 04/12/24 17:06 Laboratory: WBC 5.6 X10^3/uL (3.6-10.0) 04/12/24 17:06 RBC 4.71 X10^6/uL (4.7-6.0) 04/12/24 17:06 Hgb 14.4 g/dL (13.5-18.0) 04/12/24 17:06 Hct 41.1 % (42.0-54.0) L 04/12/24 17:06 MCV 87.2 fL (80.0-100.0) 04/12/24 17:06 MCH 30.6 pg (27.0-34.0) 04/12/24 17:06 MCHC 35.1 g/dL (33.0-35.0) H 04/12/24 17:06 RDW 13.9 % (11.6-16.5) 04/12/24 17:06 Plt Count 63 X10^3/uL (150.0-450.0) L 04/12/24 17:06 MPV 8.2 fL (7.4-11.0) 04/12/24 17:06 Neut % (Auto) 71.6 % (42.0-75.0) 04/12/24 17:06 Lymph % (Auto) 13.7 % (21.0-51.0) L 04/12/24 17:06 [place] % (Auto) 10.4 % (0.0-13.0) 04/12/24 17:06 Eos % (Auto) 3.5 % (0.9-2.9) H 04/12/24 17:06 Baso % (Auto) 0.8 % (0.2-1.0) 04/12/24 17:06 Neut # (Auto) 4.0 x10^3/uL (2.2-4.8) 04/12/24 17:06 Lymph # (Auto) 0.8 X10^3/uL (1.3-2.9) L 04/12/24 17:06 [place] # (Auto) 0.6 x10^3/uL (0.3-0.8) 04/12/24 17:06 Eos # (Auto) 0.2 x10^3/uL (0.0-0.2) 04/12/24 17:06 Baso # (Auto) 0.0 X10^3/uL (0.0-0.1) 04/12/24 17:06 Absolute Nucleated RBC 0.2 /100WBC 04/12/24 17:06 PT 13.5 SECONDS (11.8-14.3) 04/12/24 17:06 INR Target Range - 04/12/24 17:06 INR 1.06 (0.8-1.3) 04/12/24 17:06 APTT 26.7 SECONDS (22.9-36.5) 04/12/24 17:06 PTT Comment - 04/12/24 17:06 Sodium 137 mmol/L (136-145) 04/12/24 17:06 Corrected Sodium 140 mmol/L (136-145) 04/12/24 17:06 Potassium 4.2 mmol/L (3.5-5.1) 04/12/24 17:06 Chloride 99 mmol/L (98-107) 04/12/24 17:06 Carbon Dioxide 24.0 mmol/L (21-32) 04/12/24 17:06 BUN 20 mg/dL (7-18) H 04/12/24 17:06 Creatinine 1.42 mg/dL (0.70-1.30) H 04/12/24 17:06 Est GFR (MDRD) Af Amer > 60 (>60) 04/12/24 17:06 Est GFR (MDRD) Non-Af 52 (>60) L 04/12/24 17:06 Glucose 205 mg/dL (65-99) H 04/12/24 17:06 Calcium 9.3 mg/dL (8.5-10.1) 04/12/24 17:06 Corrected Calcium TNP 04/12/24 17:06 Magnesium 2.0 mg/dL (2.0-2.9) 04/12/24 17:06 Total Bilirubin 0.30 mg/dL (0.2-1.0) 04/12/24 17:06 AST 75 Units/L (15-37) H 04/12/24 17:06 ALT 70 Units/L (12-78) 04/12/24 17:06 Alkaline Phosphatase 95 Units/L (46-116) 04/12/24 17:06 Creatine Kinase 75 Units/L (39-308) 04/12/24 17:06 Troponin I High Sens 10.0 ng/L (4.0-60.0) 04/12/24 17:06 B-Natriuretic Peptide 40.6 pg/mL (0-79) 04/12/24 17:06 Total Protein 7.6 g/dL (6.4-8.2) 04/12/24 17:06 Albumin 4.0 g/dL (3.4-5.0) 04/12/24 17:06 Globulin 3.6 g/dL (2.5-4.5) 04/12/24 17:06 Albumin/Globulin Ratio 1.1 Ratio (1.1-2.1) 04/12/24 17:06 Specimen Type Clean catch urine 04/12/24 18:56 Urine Color Yellow (YELLOW) 04/12/24 18:56 Urine Appearance Clear (CLEAR) 04/12/24 18:56 Urine pH 6.0 (5.0 - 8.0) 04/12/24 18:56 Ur Specific [place] 1.020 (1.000-1.030) 04/12/24 18:56 Urine Protein 2+ (NEGATIVE) 04/12/24 18:56 Urine Glucose (UA) 4+ (NEGATIVE) 04/12/24 18:56 Urine Ketones 1+ (NEGATIVE) 04/12/24 18:56 Urine Blood 1+ (NEGATIVE) 04/12/24 18:56 Urine Nitrite Negative (NEGATIVE) 04/12/24 18:56 Urine Bilirubin Negative (NEGATIVE) 04/12/24 18:56 Urine Urobilinogen Normal (NORMAL) 04/12/24 18:56 Ur Leukocyte Esterase Negative (NEGATIVE) 04/12/24 18:56 Urine RBC 0-2 /HPF (0-3) 04/12/24 18:56 Urine WBC 0-2 /HPF (0-5) 04/12/24 18:56 Ur Squamous Epith Cells Rare /HPF (NEGATIVE) 04/12/24 18:56 Urine Bacteria Trace /HPF (NEGATIVE) 04/12/24 18:56 Urine Yeast Rare /HPF (NEGATIVE) 04/12/24 18:56 Ur Culture Indicated? No/not indicated 04/12/24 18:56 Opioid Opioid Risk Tool Age (Anurag box if 16-45): No History of Preadolescent Sexual Abuse: No Total: 0 Total Score Risk Category: Low Risk Copyright: Luis Enrique MATOS predicting aberrant behaviors Discharge Plan Diagnosis Discharge Problem: Brain TIA, Aphasia Discharge Plan Patient Disposition: ADMITTED INPATIENT Condition: Stable Prescriptions: No Action potassium chloride 10 mEq capsule, extended release 10 meq PO QDAY PRN famotidine 20 mg tablet 20 mg PO BID amlodipine 10 mg tablet 10 mg PO QDAY rosuvastatin 10 mg tablet 10 mg PO QDAY dapagliflozin propanediol [Farxiga] 10 mg tablet 10 mg PO QDAY lactulose [Enulose] 10 gram/15 mL solution 10 g PO QDAY PRNQty: 100 0RF metformin 1,000 mg tablet 1,000 mg PO BID gabapentin 400 mg capsule 400 mg PO QID acetaminophen-codeine 300-30 mg tablet 1 tab PO QID PRN aspirin 81 mg Tablet,Delayed Release (Dr/Ec) 81 mg PO QDAY levetiracetam 750 mg tablet extended release 24 hr 750 mg PO QDAY hydrochlorothiazide 25 mg tablet 25 mg PO QDAY 30 Days Qty: 30 0RF ondansetron 4 mg tablet,disintegrating 4 mg PO TID PRN (Reason: nausea and vomiting) Qty: 14 0RF Health Concerns: Post Hospitalization: new medications and changes needed to prevent readmission or further decline. Pt educated and given instructions on all concerns. Plan of Treatment: Continue with present treatment and follow up plan. Pt is to keep follow up ap pointment as instructed and take medications as ordered. Orders to Discharge Patient Discharge Orders: Transfer (Routine); Ordered 04/12/24 Ordered By: Nato Fiore Follow ups/Referrals Follow ups/Referrals: George Shine [Primary Care Provider] - 3 days Instructions Stand Alone Forms: Find Help Web Site, Post Hospital Follow Up Care ADDITIONAL NOTES Additional Notes Additional Notes: admitted to Dr Renee at 1930.
--- NOTE | 2024-04-12 20:51 | EKG ---
Test Reason : TIA Blood Pressure : */* mmHG Vent. Rate : 103 BPM Atrial Rate : * BPM P-R Int : * ms QRS Dur : 64 ms QT Int : 514 ms P-R-T Axes : * 30 121 degrees QTc Int : 673 ms Sinus tachycardia Poor R-wave progression Low voltage QRS Abnormal ECG When compared with ECG of 12-APR-2024 17:08, (Unconfirmed) Minimal criteria for Anteroseptal infarct are no longer present QT has lengthened Confirmed by Sharath Tong MD ([id number]) on 04/13/2024 6:38:22 AM Referred By: Confirmed By: Sharath Tong MD
[2024-04-12] MEDS ORDERED: PATIENT'S HOME MEDICATION (Metformin 1,000 mg tablet) PO SCH (21:00)
[2024-04-12] MEDS: NEURONTIN CAP 400 MG PO SCH (21:47)
[2024-04-12] MEDS: PEPCID TAB 20 MG PO SCH (21:48)
[2024-04-12] MEDS: NS 1,000 ML IV 1,000 ML IV SCH (21:48)
--- NOTE | 2024-04-12 21:50 | RAD ---
EXAM:CHEST, 1 VIEWHISTORY:trouble getting out of his chair and the pt wasn't able to make it to the bathroom without wetting on the floor. states pt has MRSA in the left foot.;COMPARISON:March 06, 2024TECHNIQUE:Chest radiographic imaging, AP portable projection, 1 imageFINDINGS:No cardiomegaly.Status post median sternotomy/CABG.No focal airspace disease.No pleural effusion.No pneumothorax.No acute osseous abnormality.IMPRESSION:No imaging findings of acute cardiopulmonary disease.THIS IS AN ELECTRONICALLY VERIFIED FINAL REPORT04/12/2024 9:47 PM - Electronically signed by Donald Hernandez MD
--- NOTE | 2024-04-13 02:49 | EKG ---
Test Reason : TIA Blood Pressure : */* mmHG Vent. Rate : 103 BPM Atrial Rate : 103 BPM P-R Int : 172 ms QRS Dur : 84 ms QT Int : 304 ms P-R-T Axes : 9 10 162 degrees QTc Int : 398 ms Sinus tachycardia Possible Left atrial enlargement Poor R-wave progression Inferior infarct , age undetermined Abnormal ECG When compared with ECG of 12-APR-2024 20:29, (Unconfirmed) Inferior infarct -present QT has shortened Confirmed by Sharath Tong MD ([id number]) on 04/13/2024 6:39:49 AM Referred By: Confirmed By: Sharath Tong MD
[2024-04-13] MEDS: ROBITUSSIN DM PO PRN (06:11)
[2024-04-13] MEDS: GLUCOPHAGE PO SCH (06:11)
[2024-04-13 06:20] LABS: BASOPHILS % (AUTO) 0.9 % (0.2-1.0); EOSINOPHILS % (AUTO) 1.5 % (0.9-2.9); HEMATOCRIT 34.9 % (42.0-54.0); HEMOGLOBIN 12.5 g/dL (13.5-18.0); LYMPHOCYTES # (AUTO) 0.7 X10^3/uL (1.3-2.9); LYMPHOCYTES % (AUTO) 21.3 % (21.0-51.0); MEAN CORPUSCULAR HEMOGLOBIN 30.5 pg (27.0-34.0); MEAN CORPUSCULAR HGB CONC 35.7 g/dL (33.0-35.0); MEAN CORPUSCULAR VOLUME 85.5 fL (80.0-100.0); MEAN PLATELET VOLUME 8.1 fL (7.4-11.0); MONOCYTES # (AUTO) 0.6 x10^3/uL (0.3-0.8); MONOCYTES % (AUTO) 17.7 % (0.0-13.0); NEUTROPHILS # (AUTO) 1.9 x10^3/uL (2.2-4.8); NEUTROPHILS % (AUTO) 58.6 % (42.0-75.0); PLATELET COUNT 52 X10^3/uL (150.0-450.0); RED BLOOD COUNT 4.09 X10^6/uL (4.7-6.0); RED CELL DISTRIBUTION WIDTH 13.7 % (11.6-16.5); WHITE BLOOD COUNT 3.2 X10^3/uL (3.6-10.0)
[2024-04-13] MEDS: GLUCOPHAGE ONE (06:20)
[2024-04-13 06:38] LABS: ALANINE AMINOTRANSFERASE 93 Units/L (12-78); ALBUMIN 3.4 g/dL (3.4-5.0); ALKALINE PHOSPHATASE 90 Units/L (46-116); ASPARTATE AMINO TRANSFERASE 100 Units/L (15-37); BLOOD UREA NITROGEN 19 mg/dL (7-18); CALCIUM 8.4 mg/dL (8.5-10.1); CARBON DIOXIDE 23.1 mmol/L (21-32); CHLORIDE 101 mmol/L (98-107); CHOL/HDL RATIO 1.4 (0.0-5.0); CHOLESTEROL < 50 mg/dL (0-200); COR NA(FOR HYPERGLY) 139 mmol/L (136-145); CREATININE 1.13 mg/dL (0.70-1.30); GLUCOSE 167 mg/dL (65-99); HDL CHOLESTEROL 37 mg/dL (40-60); MAGNESIUM 1.8 mg/dL (2.0-2.9); POTASSIUM 3.9 mmol/L (3.5-5.1); SODIUM 137 mmol/L (136-145); TOTAL PROTEIN 6.6 g/dL (6.4-8.2); TRIGLYCERIDES 53 mg/dL (0-150); eGFR NON BLACK RACES > 60 (>60)
--- NOTE | 2024-04-13 08:35 | RAD ---
EXAM:Portable chestHISTORY:Altered mental status, TIACOMPARISON:04/12/2024FINDINGS:Patient is status post median sternotomy and CABG. Hypoinflation accentuates the heart size. It likely upper limits normal. Reena are normal. Aorta is calcified. Lungs appear free of acute infiltrates. No pleural effusions identified. Bony thorax is unremarkable.IMPRESSION:Lungs hypoinflated but free of acute infiltratesTHIS IS AN ELECTRONICALLY VERIFIED FINAL REPORT04/13/2024 8:32 AM - Electronically signed by Jose Manuel Cuellar MD
--- NOTE | 2024-04-13 08:47 | EKG ---
Test Reason : TIA Blood Pressure : */* mmHG Vent. Rate : 100 BPM Atrial Rate : 100 BPM P-R Int : 158 ms QRS Dur : 82 ms QT Int : 334 ms P-R-T Axes : 24 13 184 degrees QTc Int : 430 ms Normal sinus rhythm Anterior infarct , age undetermined Abnormal ECG When compared with ECG of 13-APR-2024 02:27, No significant change was found Confirmed by Sharath Tong MD ([id number]) on 04/13/2024 1:45:21 PM Referred By: Confirmed By: Sharath Tong MD
[2024-04-13] MEDS: ASPIRIN EC 81 MG PO SCH (08:50)
[2024-04-13] MEDS: CRESTOR TAB 10 MG PO SCH (08:50)
[2024-04-13] MEDS: HYDROCHLOROTHIAZIDE 25 MG TAB PO SCH (08:51)
[2024-04-13] MEDS: NORVASC TAB 10 MG PO SCH (08:51)
[2024-04-13] MEDS: KEPPRA TAB 500 MG PO SCH (08:53)
[2024-04-13] MEDS ORDERED: LEVETIRACETAM 750 MG PO SCH (09:00)
[2024-04-13] MEDS ORDERED: CONSULT PHARMACY - POTASSIUM & MAGNESIUM XX SCH (09:37)
[2024-04-13] MEDS: FARXIGA PO SCH (09:55)
[2024-04-13] MEDS: PLAVIX PO SCH (10:07)
[2024-04-13] MEDS: KEPPRA TAB 500 MG PO NR (10:07)
[2024-04-13] MEDS: NS 1,000 ML IV 1,000 ML with MAGNESIUM SULFATE 50% INJ VIAL 1 G IV SCH (10:11)
[2024-04-13] MEDS: VANCOMYCIN IV *PREMIX 1 G/200 ML BAG 1 G/200 ML PIGGYBACK IV SCH (10:50)
--- NOTE | 2024-04-13 11:12 | DR.H&P ---
H&P History & Physical for Day of: H&P Date: 04/13/24 Chief Complaint Chief Complaint: difficulty speaking lower extremity weakness History of Present Illness History of Present Illness: Patient is a 73-year-old male with a past medical history of hypertension, diabetes, CAD, seizure disorder, presenting with lower extremity weakness and difficulty speaking. Per his , patient yesterday afternoon at 1 PM had difficulty ambulating and speaking. He was taken to the ER. In the ER it appears that his speech was back to baseline. He does remain weak in his lower extremities. Labs/imaging: WBC 3.2, hemoglobin 12.5, pl atelets 52, sodium 137, potassium 3.9, creatinine 1.13, glucose 167, magnesium 1.8, UA negative, CT of the brain revealed no acute intracranial findings, chest x-ray was negative for any acute cardiopulmonary findings. Blood culture prelim positive Gram stain. Patient was admitted for TIA, altered mental status, aphasia, hypomagnesemia. He was started on IV fluids normal saline at 75 mL/h. On exam the only focal deficits that was noted was patient having difficulty lifting up bilateral lower extremities. Is difficult at this time to determine if this is due to a stroke or severe weakness. Due to debility. Will order MRI for further evaluation. Will also order carotid ultrasound, echo. Will start patient on aspirin and Plavix. Will also start patient on IV vancomycin due to nonhealing wound on the left heel. Will consult general surgery for further evaluation. Replete electrolytes per protocol. Otherwise continue with current treatment plan. Continue closely monitor and follow-up labs/imaging. Time spent for clinical assessment, reviewing labs/imaging, physical exam, de cision making and documentation greater than 45 mins. Past Medical History Past Medical History: Coronary Artery Disease, Diabetes and Hypertension Past Surgical History Surgical History: Appendectomy, CABG/Valve Surgery, Cholecystectomy and Other Family History Family Medical History: Diabetes Mellitus, Cancer, Coronary Artery Disease and Hypertension Social History Alcohol Use: None Medications Home Medications: Home Medications Medication Instructions Recorded Confirmed Type metformin 1,000 mg tablet 1,000 mg PO BID 01/02/23 04/12/24 History acetaminophen 300 mg-codeine 30 mg 1 tab PO QID PRN 07/12/23 04/12/24 History tablet aspirin 81 mg tablet,delayed 81 mg PO QDAY 07/12/23 04/12/24 History release gabapentin 400 mg capsule 400 mg PO QID 07/12/23 04/12/24 History levetiracetam 750 mg 750 mg PO QDAY 07/12/23 04/12/24 History tablet,extended release 24 hr amlodipine 10 mg tablet 10 mg PO QDAY 09/18/23 04/12/24 History dapagliflozin propanediol 10 mg 10 mg PO QDAY 09/18/23 04/12/24 History tablet (Farxiga) famotidine 20 mg tablet 20 mg PO BID 09/18/23 04/12/24 History potassium chloride 10 mEq 10 meq PO QDAY PRN 09/18/23 04/12/24 History capsule,extended release rosuvastatin 10 mg tablet 10 mg PO QDAY 09/18/23 04/12/24 History Allergies Allergies Allergy/AdvReac Type Severity Reaction Status Date / Time No Known Drug Allergies Allergy Unknown Verified 04/12/24 16:49 Labs 04/13/24 05:28 04/13/24 05:28 Labs: Laboratory WBC 3.2 X10^3/uL (3.6-10.0) L 04/13/24 05:28 RBC 4.09 X10^6/uL (4.7-6.0) L 04/13/24 05:28 Hgb 12.5 g/dL (13.5-18.0) L 04/13/24 05:28 Hct 34.9 % (42.0-54.0) L 04/13/24 05:28 MCV 85.5 fL (80.0-100.0) 04/13/24 05:28 MCH 30.5 pg (27.0-34.0) 04/13/24 05:28 MCHC 35.7 g/dL (33.0-35.0) H 04/13/24 05:28 RDW 13.7 % (11.6-16.5) 04/13/24 05:28 Plt Count 52 X10^3/uL (150.0-450.0) L 04/13/24 05:28 MPV 8.1 fL (7.4-11.0) 04/13/24 05:28 Neut % (Auto) 58.6 % (42.0-75.0) 04/13/24 05:28 Lymph % (Auto) 21.3 % (21.0-51.0) 04/13/24 05:28 [place] % (Auto) 17.7 % (0.0-13.0) H 04/13/24 05:28 Eos % (Auto) 1.5 % (0.9-2.9) 04/13/24 05:28 Baso % (Auto) 0.9 % (0.2-1.0) 04/13/24 05:28 Neut # (Auto) 1.9 x10^3/uL (2.2-4.8) L 04/13/24 05:28 Lymph # (Auto) 0.7 X10^3/uL (1.3-2.9) L 04/13/24 05:28 [place] # (Auto) 0.6 x10^3/uL (0.3-0.8) 04/13/24 05:28 Eos # (Auto) 0.0 x10^3/uL (0.0-0.2) 04/13/24 05:28 Baso # (Auto) 0.0 X10^3/uL (0.0-0.1) 04/13/24 05:28 Absolute Nucleated RBC 0.1 /100WBC 04/13/24 05:28 PT 14.9 SECONDS (11.8-14.3) 04/13/24 05:28 INR Target Range - 04/13/24 05:28 INR 1.20 (0.8-1.3) 04/13/24 05:28 APTT 28.8 SECONDS (22.9-36.5) 04/13/24 05:28 PTT Comment - 04/13/24 05:28 Sodium 137 mmol/L (136-145) 04/13/24 05:28 Corrected Sodium 139 mmol/L (136-145) 04/13/24 05:28 Potassium 3.9 mmol/L (3.5-5.1) 04/13/24 05:28 Chloride 101 mmol/L (98-107) 04/13/24 05:28 Carbon Dioxide 23.1 mmol/L (21-32) 04/13/24 05:28 BUN 19 mg/dL (7-18) H 04/13/24 05:28 Creatinine 1.13 mg/dL (0.70-1.30) 04/13/24 05:28 Est GFR (MDRD) Af Amer > 60 (>60) 04/13/24 05:28 Est GFR (MDRD) Non-Af > 60 (>60) 04/13/24 05:28 Glucose 167 mg/dL (65-99) H 04/13/24 05:28 Calcium 8.4 mg/dL (8.5-10.1) L 04/13/24 05:28 Corrected Calcium TNP 04/13/24 05:28 Magnesium 1.8 mg/dL (2.0-2.9) L 04/13/24 05:28 Total Bilirubin 0.30 mg/dL (0.2-1.0) 04/13/24 05:28 AST 100 Units/L (15-37) H 04/13/24 05:28 ALT 93 Units/L (12-78) H 04/13/24 05:28 Alkaline Phosphatase 90 Units/L (46-116) 04/13/24 05:28 Creatine Kinase 67 Units/L (39-308) 04/13/24 08:10 Troponin I High Sens 14.2 ng/L (4.0-60.0) 04/13/24 08:10 B-Natriuretic Peptide 40.6 pg/mL (0-79) 04/12/24 17:06 Total Protein 6.6 g/dL (6.4-8.2) 04/13/24 05:28 Albumin 3.4 g/dL (3.4-5.0) 04/13/24 05:28 Globulin 3.2 g/dL (2.5-4.5) 04/13/24 05:28 Albumin/Globulin Ratio 1.1 Ratio (1.1-2.1) 04/13/24 05:28 Triglycerides 53 mg/dL (0-150) 04/13/24 05:28 Cholesterol < 50 mg/dL (0-200) 04/13/24 05:28 LDL Cholesterol, Calc 2 mg/dL (0-100) 04/13/24 05:28 HDL Cholesterol 37 mg/dL (40-60) L 04/13/24 05:28 Cholesterol/HDL Ratio 1.4 (0.0-5.0) 04/13/24 05:28 Specimen Type Clean catch urine 04/12/24 18:56 Urine Color Yellow (YELLOW) 04/12/24 18:56 Urine Appearance Clear (CLEAR) 04/12/24 18:56 Urine pH 6.0 (5.0 - 8.0) 04/12/24 18:56 Ur Specific [place] 1.020 (1.000-1.030) 04/12/24 18:56 Urine Protein 2+ (NEGATIVE) 04/12/24 18:56 Urine Glucose (UA) 4+ (NEGATIVE) 04/12/24 18:56 Urine Ketones 1+ (NEGATIVE) 04/12/24 18:56 Urine Blood 1+ (NEGATIVE) 04/12/24 18:56 Urine Nitrite Negative (NEGATIVE) 04/12/24 18:56 Urine Bilirubin Negative (NEGATIVE) 04/12/24 18:56 Urine Urobilinogen Normal (NORMAL) 04/12/24 18:56 Ur Leukocyte Esterase Negative (NEGATIVE) 04/12/24 18:56 Urine RBC 0-2 /HPF (0-3) 04/12/24 18:56 Urine WBC 0-2 /HPF (0-5) 04/12/24 18:56 Ur Squamous Epith Cells Rare /HPF (NEGATIVE) 04/12/24 18:56 Urine Bacteria Trace /HPF (NEGATIVE) 04/12/24 18:56 Urine Yeast Rare /HPF (NEGATIVE) 04/12/24 18:56 Ur Culture Indicated? No/not indicated 04/12/24 18:56 Review of Systems Constitutional: No Symptoms Reported Eyes: No Symptoms Reported ENT: No Symptoms Reported Respiratory: No Symptoms Reported Cardiovascular: No Symptoms Reported Gastrointestinal: No Symptoms Reported Genitourinary: No Symptoms Reported Musculoskeletal: Other (weakness bilateral lower extremities ) Skin: No Symptoms Reported Neurological: No Symptoms Reported Physical Exam Vital Signs: Vital Signs Temperature 99.6 F Temperature 98.7 F Temperature 98.7 F Pulse Rate [Left Radial] 102 Pulse Rate [Left Radial] 102 Pulse Rate [Left Radial] 102 Respiratory Rate 19 Respiratory Rate 18 Respiratory Rate 18 Blood Pressure [Left Arm] 140/72 Blood Pressure [Left Arm] 147/75 Blood Pressure [Left Arm] 147/75 O2 Sat by Pulse Oximetry 91 O2 Sat by Pulse Oximetry 91 O2 Sat by Pulse Oximetry 91 Oriented: Normal Eyes: Normal Ear: Normal Nose: Normal Throat: Normal Respiratory: Clear Throughout Cardiovascular: Normal : Normal Auscultation: Bowel Sounds: Normal Palpation: Normal Tenderness: Normal Skin: Normal Musculoskeletal: Motor Deficit (lifting up bilateral lower extremities, able to move foot and toes, sensation intact ) Psychiatric: Normal Mood Description: Calm and Appropriate Affect: Normal Speech Pattern: Clear and Appropriate Assessment/Plan (1) Brain TIA: Status: Acute (2) Aphasia: Status: Acute (3) Non-healing wound of left heel: Status: Acute (4) Bacteremia: Status: Acute Review H&P Reviewed: Yes Patient was examined?: Yes
[2024-04-13] MEDS: NovoLIN R (or HumuLIN R) SUBCUT PRN (12:37)
[2024-04-13] MEDS ORDERED: GLUCOPHAGE ONE (16:31)
--- NOTE | 2024-04-13 16:48 | VAS ---
EXAM: CAROTID US HISTORY: TIA, AMS; COMPARISON: None available. TECHNIQUE: Multiple batista scale, duplex and color flow Doppler images of the right and left carotid arterial syst em were obtained. The vertebral arterial system was evaluated as well. FINDINGS: Nonocclusive color flow Doppler is seen throughout the right and left carotid arterial system. There is moderate atherosclerotic plaque formation of the bilateral carotid bulbs and proximal ICAs w ith associated intimal thickening but without evidence for high-grade stenosis (>70%) or occlusion of the carotid arteries. The right and left vertebral artery demonstrate antegrade flow. There is patent flow and normal duplex waveforms within the right and left external carotid arteries. Peak right ICA velocity: 81 centimeter/seconds. Peak right CCA velocity: 111 centimeter/seconds. Right ICA to CCA ratio: 1.6. Peak left ICA velocity: 67 centimeter/seconds. Peak left CCA velocity: 121 centimeter/seconds. Left ICA to CCA ratio: 1.1. IMPRESSION: No hemodynamically significant carotid artery stenosis is seen. Moderate bilateral CCA and proximal ICA atherosclerosis. Appropriate, antegrade, vertebral arterial flow seen bilaterally. THIS IS AN ELECTRONICALLY VERIFIED FINAL REPORT 04/13/2024 4:39 PM - Electronically signed by Pierce Ashley MD
[2024-04-14] MEDS: ZOFRAN ODT PO PRN (00:59)
[2024-04-14] MEDS: SNACK - Diabetic Appropriate PO SCH (01:04)
[2024-04-14] MEDS: GLUCOPHAGE ONE (06:18)
[2024-04-14 06:29] LABS: BASOPHILS % (AUTO) 0.5 % (0.2-1.0); EOSINOPHILS % (AUTO) 0.5 % (0.9-2.9); HEMATOCRIT 34.9 % (42.0-54.0); HEMOGLOBIN 12.4 g/dL (13.5-18.0); LYMPHOCYTES # (AUTO) 0.9 X10^3/uL (1.3-2.9); LYMPHOCYTES % (AUTO) 22.2 % (21.0-51.0); MEAN CORPUSCULAR HEMOGLOBIN 30.5 pg (27.0-34.0); MEAN CORPUSCULAR HGB CONC 35.5 g/dL (33.0-35.0); MEAN CORPUSCULAR VOLUME 85.9 fL (80.0-100.0); MEAN PLATELET VOLUME 8.6 fL (7.4-11.0); MONOCYTES # (AUTO) 0.6 x10^3/uL (0.3-0.8); MONOCYTES % (AUTO) 14.9 % (0.0-13.0); NEUTROPHILS # (AUTO) 2.4 x10^3/uL (2.2-4.8); NEUTROPHILS % (AUTO) 61.9 % (42.0-75.0); RED BLOOD COUNT 4.06 X10^6/uL (4.7-6.0); RED CELL DISTRIBUTION WIDTH 13.9 % (11.6-16.5)
[2024-04-14 06:43] LABS: PLATELET COUNT 14 X10^3/uL (150.0-450.0)
[2024-04-14 06:47] LABS: ALANINE AMINOTRANSFERASE 131 Units/L (12-78); ALBUMIN 3.2 g/dL (3.4-5.0); ALKALINE PHOSPHATASE 97 Units/L (46-116); ASPARTATE AMINO TRANSFERASE 100 Units/L (15-37); BLOOD UREA NITROGEN 16 mg/dL (7-18); CALCIUM 8.2 mg/dL (8.5-10.1); CARBON DIOXIDE 25.3 mmol/L (21-32); CHLORIDE 101 mmol/L (98-107); COR CA(FOR HYPOALB) 8.8 mg/dL (8.5-10.1); COR NA(FOR HYPERGLY) 138 mmol/L (136-145); CREATININE 1.19 mg/dL (0.70-1.30); GLUCOSE 154 mg/dL (65-99); POTASSIUM 3.4 mmol/L (3.5-5.1); SODIUM 137 mmol/L (136-145); TOTAL PROTEIN 6.4 g/dL (6.4-8.2); eGFR NON BLACK RACES > 60 (>60)
[2024-04-14] MEDS: KEPPRA TAB 500 MG PO SCH (09:31)
--- NOTE | 2024-04-14 10:03 | MRI ---
EXAM: BRAIN W&W/O CON HISTORY: TIA MULTIHANCE-CONTRAST 17CC INJECTED INTO RIGHT AC ; COMPARISON: No relevant prior studies are available for comparison at the time of interpretation. TECHNIQUE: Multisequential, multiplanar MRI of the brain was performed Before and after administration of intrav enous contrast. FINDINGS: No restricted diffusion or susceptibility artifact to suggest acute infarct or hemorrhage. No mass, s ignificant mass effect, or herniation. Cortical atrophy and scattered foci of long TR signal are seen within the supratentorial and perivent ricular white matter, consistent with mild chronic microvascular ischemic disease. No hydrocephalus or extra-axial fluid collections. No acute abnormality to the corpus callosum, pituitary, or posterior fossa as visualized. Basal cist erns are patent. Flow voids are present. Globes are intact. Extraocular muscles and optic nerves are symmetric and unremarkable as visualized . Intraconal and extraconal structures are within normal limits. Retrobulbar fat is within normal l imits. Sinuses and mastoids are predominantly clear. Visualized extracranial structures are grossly unremarkable. No unusual enhancement on post contrast images. IMPRESSION: 1. No acute intracranial abnormality. 2. Mild chronic microvascular ischemic disease of the white matter THIS IS AN ELECTRONICALLY VERIFIED FINAL REPORT 04/14/2024 9:59 AM - Electronically signed by Juan F Daniel MD
[2024-04-14 13:16] LABS: BASOPHILS % (AUTO) 0.9 % (0.2-1.0); EOSINOPHILS % (AUTO) 0.2 % (0.9-2.9); HEMATOCRIT 37.4 % (42.0-54.0); HEMOGLOBIN 13.2 g/dL (13.5-18.0); LYMPHOCYTES # (AUTO) 1.4 X10^3/uL (1.3-2.9); LYMPHOCYTES % (AUTO) 31.5 % (21.0-51.0); MEAN CORPUSCULAR HEMOGLOBIN 30.4 pg (27.0-34.0); MEAN CORPUSCULAR HGB CONC 35.2 g/dL (33.0-35.0); MEAN CORPUSCULAR VOLUME 86.4 fL (80.0-100.0); MEAN PLATELET VOLUME 7.8 fL (7.4-11.0); MONOCYTES # (AUTO) 0.5 x10^3/uL (0.3-0.8); MONOCYTES % (AUTO) 12.2 % (0.0-13.0); NEUTROPHILS # (AUTO) 2.4 x10^3/uL (2.2-4.8); NEUTROPHILS % (AUTO) 55.2 % (42.0-75.0); PLATELET COUNT 61 X10^3/uL (150.0-450.0); RED BLOOD COUNT 4.33 X10^6/uL (4.7-6.0); RED CELL DISTRIBUTION WIDTH 13.8 % (11.6-16.5); WHITE BLOOD COUNT 4.4 X10^3/uL (3.6-10.0)
--- NOTE | 2024-04-14 16:53 | CT ---
EXAM:ABDOMEN/PELVIS WITH CONHISTORY:Abdominal Pain;COMPARISON:September 18, 2023TECHNIQUE:Axial CT images of the abdomen and pelvis were obtained after the administration of 90 mL Omnipaque 350 IV contrast and reformatted into coronal and sagittal planes for further evaluation.Radiation dose: 279.09 mGy-cm total DLPFINDINGS:Lung bases are clear.Stomach appears normal.Solid visceral organs of the upper abdomen are unremarkable.Status post cholecystectomy.Homogeneous enhancement of the kidneys without hydronephrosis or hydroureter.Unremarkable appearance of the urinary bladder.Imaged reproductive structures are unremarkable.Unremarkable appearance of the large and small bowel. Multiple areas of moderate stool burden in the colon.Status post appendectomy.No pneumoperitoneum.No significant fluid collection.No adenopathy.No acute osseous abnormality.IMPRESSION:No acute intra-abdominal abnormality detected.THIS IS AN ELECTRONICALLY VERIFIED FINAL REPORT04/14/2024 4:50 PM - Electronically signed by Donald Hernandez MD
[2024-04-14] MEDS ORDERED: GLUCOPHAGE ONE (16:58)
[2024-04-14 21:12] LABS: CREATININE 1.03 mg/dL (0.70-1.30); VANCOMYCIN,TROUGH 15.3 ug/mL (15-20)
[2024-04-14] MEDS: PHARMACY COMMENT IV ONE (21:51)
[2024-04-15] MEDS ORDERED: GLUCOPHAGE ONE (04:59)
[2024-04-15 06:52] LABS: BASOPHILS # (AUTO) 0.1 X10^3/uL (0.0-0.1); BASOPHILS % (AUTO) 0.9 % (0.2-1.0); EOSINOPHILS % (AUTO) 0.1 % (0.9-2.9); HEMATOCRIT 35.9 % (42.0-54.0); HEMOGLOBIN 12.6 g/dL (13.5-18.0); LYMPHOCYTES # (AUTO) 0.9 X10^3/uL (1.3-2.9); LYMPHOCYTES % (AUTO) 14.6 % (21.0-51.0); MEAN CORPUSCULAR HEMOGLOBIN 30.2 pg (27.0-34.0); MEAN CORPUSCULAR HGB CONC 35.2 g/dL (33.0-35.0); MEAN CORPUSCULAR VOLUME 85.7 fL (80.0-100.0); MEAN PLATELET VOLUME 7.9 fL (7.4-11.0); MONOCYTES # (AUTO) 0.6 x10^3/uL (0.3-0.8); MONOCYTES % (AUTO) 10.9 % (0.0-13.0); NEUTROPHILS # (AUTO) 4.3 x10^3/uL (2.2-4.8); NEUTROPHILS % (AUTO) 73.5 % (42.0-75.0); PLATELET COUNT 66 X10^3/uL (150.0-450.0); RED BLOOD COUNT 4.19 X10^6/uL (4.7-6.0); WHITE BLOOD COUNT 5.8 X10^3/uL (3.6-10.0)
[2024-04-15 06:55] LABS: ALANINE AMINOTRANSFERASE 112 Units/L (12-78); ALBUMIN 3.1 g/dL (3.4-5.0); ALKALINE PHOSPHATASE 91 Units/L (46-116); ASPARTATE AMINO TRANSFERASE 74 Units/L (15-37); BLOOD UREA NITROGEN 16 mg/dL (7-18); CALCIUM 8.3 mg/dL (8.5-10.1); CARBON DIOXIDE 20.8 mmol/L (21-32); CHLORIDE 97 mmol/L (98-107); COR NA(FOR HYPERGLY) 134 mmol/L (136-145); CREATININE 1.17 mg/dL (0.70-1.30); GLUCOSE 160 mg/dL (65-99); MAGNESIUM 1.9 mg/dL (2.0-2.9); POTASSIUM 3.5 mmol/L (3.5-5.1); SODIUM 133 mmol/L (136-145); TOTAL PROTEIN 6.5 g/dL (6.4-8.2); eGFR NON BLACK RACES > 60 (>60)
--- NOTE | 2024-04-15 07:09 | RAD ---
EXAM: AP chest HISTORY: , TIA COMPARISON: 04/13/2024 FINDINGS: Similar normal heart size with sternal wires, and no evidence for developing pneumonia, atelectasis, pleural fluid or CHF. IMPRESSION: No change, no acute findings in the chest. THIS IS AN ELECTRONICALLY VERIFIED FINAL REPORT 04/15/2024 7:05 AM - Electronically signed by Dieter Lyon MD
--- NOTE | 2024-04-15 10:38 | PCM.PROG ---
Progress Note Progress Note for Day of Date of Exam: 04/15/24 Subjective Subjective: Patient is a 73-year-old male with a past medical history of hypertension, diabetes, CAD, seizure disorder, admitted for TIA, altered mental status, aphasia, hypomagnesemia. This morning he is resting in bed, no acute events overnight. this morning states that patient is significantly more alert than previous. Labs/imaging: WBC 4, hemoglobin 12.4, platelets 14, sodium 138, potassium 3.4, creatinine 1.19, glucose 154. Blood culture prelim positive Gram stain. He is currently receiving IV fluids normal saline at 75 mL/h. MRI currently pending radiology read. Carotid ultrasound revealed no significant stenosis. Echo pending. Platelets significantly low this morning, will repeat at 2 PM. Will also obtain a CT abdomen pelvis for further evaluation. Patient does not have any acute signs of bleeding. Anemia studies have been ordered. Patient currently only on aspirin. He does have a significant cardiac history of bypass. He is also receiving IV vancomycin due to nonhealing wound on the left heel. Will consult general surgery for further evaluation and obtain wound culture. Replete electrolytes per protocol. PT/OT. Otherwise continue with current treatment plan. Continue closely monitor and follow-up labs/imaging. Time spent for clinical assessment, reviewing labs/imaging, physical exam, decision making and documentation greater than 45 mins. Past Medical Family Social History Allergies: Allergies No Known Drug Allergies Allergy (Unknown, Verified 04/12/24 16:49) Onset Date: 10/04/2017 Review of Systems ROS changes noted: see HPI Vital Signs and I&O's Vital Signs: Vital Signs Temperature 98.2 F Pulse Rate [Left Radial] 95 Respiratory Rate 20 Blood Pressure [Left Arm] 122/79 O2 Sat by Pulse Oximetry 91 Intake and Output: Intake & Output 04/12/24 04/13/24 04/14/24 04/15/24 23:59 23:59 23:59 23:59 Intake Total 974 / 974 3759 / 3759 500 / 500 Output Total 700 / 700 400 / 400 750 / 750 Balance 274 / 274 3359 / 3359 -250 / -250 Physical Exam Oriented: Normal Eyes: Normal Ear: Normal Nose: Normal Throat: Normal Cardiovascular: Normal : Normal Auscultation: Bowel Sounds: Normal Tenderness: Normal Skin: Normal Musculoskeletal: Motor Deficit (lifting up bilateral lower extremities, able to move foot and toes, sensation intact ) Psychiatric: Normal Mood Description: Calm Affect: Normal Speech Pattern: Clear Laboratory and Diagnostics 04/15/24 05:53 04/15/24 05:53 Labs: 04/12/24 17:14 Blood Blood Culture - Final 04/12/24 17:06 Blood Blood Culture - Preliminary Laboratory WBC 5.8 X10^3/uL (3.6-10.0) 04/15/24 05:53 RBC 4.19 X10^6/uL (4.7-6.0) L 04/15/24 05:53 Hgb 12.6 g/dL (13.5-18.0) L 04/15/24 05:53 Hct 35.9 % (42.0-54.0) L 04/15/24 05:53 MCV 85.7 fL (80.0-100.0) 04/15/24 05:53 MCH 30.2 pg (27.0-34.0) 04/15/24 05:53 MCHC 35.2 g/dL (33.0-35.0) H 04/15/24 05:53 RDW 14.0 % (11.6-16.5) 04/15/24 05:53 Plt Count 66 X10^3/uL (150.0-450.0) L 04/15/24 05:53 MPV 7.9 fL (7.4-11.0) 04/15/24 05:53 Neut % (Auto) 73.5 % (42.0-75.0) 04/15/24 05:53 Lymph % (Auto) 14.6 % (21.0-51.0) L 04/15/24 05:53 [place] % (Auto) 10.9 % (0.0-13.0) 04/15/24 05:53 Eos % (Auto) 0.1 % (0.9-2.9) L 04/15/24 05:53 Baso % (Auto) 0.9 % (0.2-1.0) 04/15/24 05:53 Neut # (Auto) 4.3 x10^3/uL (2.2-4.8) 04/15/24 05:53 Lymph # (Auto) 0.9 X10^3/uL (1.3-2.9) L 04/15/24 05:53 [place] # (Auto) 0.6 x10^3/uL (0.3-0.8) 04/15/24 05:53 Eos # (Auto) 0.0 x10^3/uL (0.0-0.2) 04/15/24 05:53 Baso # (Auto) 0.1 X10^3/uL (0.0-0.1) 04/15/24 05:53 Absolute Nucleated RBC 0.1 /100WBC 04/15/24 05:53 PT 14.9 SECONDS (11.8-14.3) 04/13/24 05:28 INR Target Range - 04/13/24 05:28 INR 1.20 (0.8-1.3) 04/13/24 05:28 APTT 28.8 SECONDS (22.9-36.5) 04/13/24 05:28 PTT Comment - 04/13/24 05:28 Sodium 133 mmol/L (136-145) L 04/15/24 05:53 Corrected Sodium 134 mmol/L (136-145) L 04/15/24 05:53 Potassium 3.5 mmol/L (3.5-5.1) 04/15/24 05:53 Chloride 97 mmol/L (98-107) L 04/15/24 05:53 Carbon Dioxide 20.8 mmol/L (21-32) L 04/15/24 05:53 BUN 16 mg/dL (7-18) 04/15/24 05:53 Creatinine 1.17 mg/dL (0.70-1.30) 04/15/24 05:53 Est GFR (MDRD) Af Amer > 60 (>60) 04/15/24 05:53 Est GFR (MDRD) Non-Af > 60 (>60) 04/15/24 05:53 Glucose 160 mg/dL (65-99) H 04/15/24 05:53 POC Glucose (mg/dL) 159 mg/dL (65-99) H 04/15/24 06:06 Calcium 8.3 mg/dL (8.5-10.1) L 04/15/24 05:53 Corrected Calcium 9.0 mg/dL (8.5-10.1) 04/15/24 05:53 Magnesium 1.9 mg/dL (2.0-2.9) L 04/15/24 05:53 Total Bilirubin 0.30 mg/dL (0.2-1.0) 04/15/24 05:53 AST 74 Units/L (15-37) H 04/15/24 05:53 ALT 112 Units/L (12-78) H 04/15/24 05:53 Alkaline Phosphatase 91 Units/L (46-116) 04/15/24 05:53 Creatine Kinase 67 Units/L (39-308) 04/13/24 08:10 Troponin I High Sens 14.2 ng/L (4.0-60.0) 04/13/24 08:10 B-Natriuretic Peptide 40.6 pg/mL (0-79) 04/12/24 17:06 Total Protein 6.5 g/dL (6.4-8.2) 04/15/24 05:53 Albumin 3.1 g/dL (3.4-5.0) L 04/15/24 05:53 Globulin 3.4 g/dL (2.5-4.5) 04/15/24 05:53 Albumin/Globulin Ratio 0.9 Ratio (1.1-2.1) L 04/15/24 05:53 Triglycerides 53 mg/dL (0-150) 04/13/24 05:28 Cholesterol < 50 mg/dL (0-200) 04/13/24 05:28 LDL Cholesterol, Calc 2 mg/dL (0-100) 04/13/24 05:28 HDL Cholesterol 37 mg/dL (40-60) L 04/13/24 05:28 Cholesterol/HDL Ratio 1.4 (0.0-5.0) 04/13/24 05:28 Specimen Type Clean catch urine 04/12/24 18:56 Urine Color Yellow (YELLOW) 04/12/24 18:56 Urine Appearance Clear (CLEAR) 04/12/24 18:56 Urine pH 6.0 (5.0 - 8.0) 04/12/24 18:56 Ur Specific [place] 1.020 (1.000-1.030) 04/12/24 18:56 Urine Protein 2+ (NEGATIVE) 04/12/24 18:56 Urine Glucose (UA) 4+ (NEGATIVE) 04/12/24 18:56 Urine Ketones 1+ (NEGATIVE) 04/12/24 18:56 Urine Blood 1+ (NEGATIVE) 04/12/24 18:56 Urine Nitrite Negative (NEGATIVE) 04/12/24 18:56 Urine Bilirubin Negative (NEGATIVE) 04/12/24 18:56 Urine Urobilinogen Normal (NORMAL) 04/12/24 18:56 Ur Leukocyte Esterase Negative (NEGATIVE) 04/12/24 18:56 Urine RBC 0-2 /HPF (0-3) 04/12/24 18:56 Urine WBC 0-2 /HPF (0-5) 04/12/24 18:56 Ur Squamous Epith Cells Rare /HPF (NEGATIVE) 04/12/24 18:56 Urine Bacteria Trace /HPF (NEGATIVE) 04/12/24 18:56 Urine Yeast Rare /HPF (NEGATIVE) 04/12/24 18:56 Ur Culture Indicated? No/not indicated 04/12/24 18:56 Vancomycin Trough 15.3 ug/mL (15-20) 04/14/24 20:45 Plan (1) Brain TIA: Status: Acute (2) Aphasia: Status: Acute (3) Non-healing wound of left heel: Status: Acute (4) Bacteremia: Status: Acute
--- NOTE | 2024-04-15 13:14 | PCM.PROG ---
Progress Note Progress Note for Day of Date of Exam: 04/15/24 Subjective Subjective: Patient seen at bedside, no acute events overnight. Patient did have more diarrhea overnight. Stool studies have not been collected. He has been admitted for TIA, altered mental status, electrolyte imbalance and lower extremity weakness. All the workup including CT brain, MRI brain, carotid ultrasound and echo has not shown any acute changes concerning for infarct or hemorrhage. CT abdomen pelvis done yesterday did not show any acute changes. He did work with OT yesterday. CM working [facility] planning [facility]. He also has a ulcer on his right heel. He remains on IV antibiotics. Labs/imaging reviewed: -WBC 5.8 hemoglobin 12.6 sodium 133 potassium 3.5 creatinine 1.17 magnesium 1.9 AST 74 ALT 112 -Blood cultures x 1 contamination Plan: Continue antibiotics. Continue wound care as per nursing. Continue current medications. Replace electrolytes as needed. Encourage p.o. intake. Continue physical therapy as tolerated. Follow-up pending stool studies. CM working on discharge planning to SNF. Past Medical Family Social History Allergies: Allergies No Known Drug Allergies Allergy (Unknown, Verified 04/12/24 16:49) Onset Date: 10/04/2017 Vital Signs and I&O's Intake and Output: Intake & Output 04/12/24 04/13/24 04/14/24 04/15/24 23:59 23:59 23:59 23:59 Intake Total 92 / 92 974 / 974 3759 / 3759 500 / 500 Output Total 700 / 700 400 / 400 750 / 750 Balance 92 / 92 274 / 274 3359 / 3359 -250 / -250 Physical Exam Oriented: Normal Eyes: Normal Ear: Normal Nose: Normal Throat: Normal Respiratory: Generalized and Diminished Cardiovascular: Normal Auscultation: Bowel Sounds: Normal Tenderness: Normal Skin: Normal Musculoskeletal: Motor Deficit (lifting up bilateral lower extremities, able to move foot and toes, sensation intact ) Psychiatric: Normal Mood Description: Calm Affect: Normal Speech Pattern: Clear Laboratory and Diagnostics 04/15/24 05:53 04/15/24 05:53 Labs: 04/12/24 17:14 Blood Blood Culture - Final 04/12/24 17:06 Blood Blood Culture - Preliminary Laboratory WBC 5.8 X10^3/uL (3.6-10.0) 04/15/24 05:53 RBC 4.19 X10^6/uL (4.7-6.0) L 04/15/24 05:53 Hgb 12.6 g/dL (13.5-18.0) L 04/15/24 05:53 Hct 35.9 % (42.0-54.0) L 04/15/24 05:53 MCV 85.7 fL (80.0-100.0) 04/15/24 05:53 MCH 30.2 pg (27.0-34.0) 04/15/24 05:53 MCHC 35.2 g/dL (33.0-35.0) H 04/15/24 05:53 RDW 14.0 % (11.6-16.5) 04/15/24 05:53 Plt Count 66 X10^3/uL (150.0-450.0) L 04/15/24 05:53 MPV 7.9 fL (7.4-11.0) 04/15/24 05:53 Neut % (Auto) 73.5 % (42.0-75.0) 04/15/24 05:53 Lymph % (Auto) 14.6 % (21.0-51.0) L 04/15/24 05:53 [place] % (Auto) 10.9 % (0.0-13.0) 04/15/24 05:53 Eos % (Auto) 0.1 % (0.9-2.9) L 04/15/24 05:53 Baso % (Auto) 0.9 % (0.2-1.0) 04/15/24 05:53 Neut # (Auto) 4.3 x10^3/uL (2.2-4.8) 04/15/24 05:53 Lymph # (Auto) 0.9 X10^3/uL (1.3-2.9) L 04/15/24 05:53 [place] # (Auto) 0.6 x10^3/uL (0.3-0.8) 04/15/24 05:53 Eos # (Auto) 0.0 x10^3/uL (0.0-0.2) 04/15/24 05:53 Baso # (Auto) 0.1 X10^3/uL (0.0-0.1) 04/15/24 05:53 Absolute Nucleated RBC 0.1 /100WBC 04/15/24 05:53 PT 14.9 SECONDS (11.8-14.3) 04/13/24 05:28 INR Target Range - 04/13/24 05:28 INR 1.20 (0.8-1.3) 04/13/24 05:28 APTT 28.8 SECONDS (22.9-36.5) 04/13/24 05:28 PTT Comment - 04/13/24 05:28 Sodium 133 mmol/L (136-145) L 04/15/24 05:53 Corrected Sodium 134 mmol/L (136-145) L 04/15/24 05:53 Potassium 3.5 mmol/L (3.5-5.1) 04/15/24 05:53 Chloride 97 mmol/L (98-107) L 04/15/24 05:53 Carbon Dioxide 20.8 mmol/L (21-32) L 04/15/24 05:53 BUN 16 mg/dL (7-18) 04/15/24 05:53 Creatinine 1.17 mg/dL (0.70-1.30) 04/15/24 05:53 Est GFR (MDRD) Af Amer > 60 (>60) 04/15/24 05:53 Est GFR (MDRD) Non-Af > 60 (>60) 04/15/24 05:53 Glucose 160 mg/dL (65-99) H 04/15/24 05:53 POC Glucose (mg/dL) 129 mg/dL (65-99) H 04/15/24 11:48 Calcium 8.3 mg/dL (8.5-10.1) L 04/15/24 05:53 Corrected Calcium 9.0 mg/dL (8.5-10.1) 04/15/24 05:53 Magnesium 1.9 mg/dL (2.0-2.9) L 04/15/24 05:53 Total Bilirubin 0.30 mg/dL (0.2-1.0) 04/15/24 05:53 AST 74 Units/L (15-37) H 04/15/24 05:53 ALT 112 Units/L (12-78) H 04/15/24 05:53 Alkaline Phosphatase 91 Units/L (46-116) 04/15/24 05:53 Creatine Kinase 67 Units/L (39-308) 04/13/24 08:10 Troponin I High Sens 14.2 ng/L (4.0-60.0) 04/13/24 08:10 B-Natriuretic Peptide 40.6 pg/mL (0-79) 04/12/24 17:06 Total Protein 6.5 g/dL (6.4-8.2) 04/15/24 05:53 Albumin 3.1 g/dL (3.4-5.0) L 04/15/24 05:53 Globulin 3.4 g/dL (2.5-4.5) 04/15/24 05:53 Albumin/Globulin Ratio 0.9 Ratio (1.1-2.1) L 04/15/24 05:53 Triglycerides 53 mg/dL (0-150) 04/13/24 05:28 Cholesterol < 50 mg/dL (0-200) 04/13/24 05:28 LDL Cholesterol, Calc 2 mg/dL (0-100) 04/13/24 05:28 HDL Cholesterol 37 mg/dL (40-60) L 04/13/24 05:28 Cholesterol/HDL Ratio 1.4 (0.0-5.0) 04/13/24 05:28 Specimen Type Clean catch urine 04/12/24 18:56 Urine Color Yellow (YELLOW) 04/12/24 18:56 Urine Appearance Clear (CLEAR) 04/12/24 18:56 Urine pH 6.0 (5.0 - 8.0) 04/12/24 18:56 Ur Specific [place] 1.020 (1.000-1.030) 04/12/24 18:56 Urine Protein 2+ (NEGATIVE) 04/12/24 18:56 Urine Glucose (UA) 4+ (NEGATIVE) 04/12/24 18:56 Urine Ketones 1+ (NEGATIVE) 04/12/24 18:56 Urine Blood 1+ (NEGATIVE) 04/12/24 18:56 Urine Nitrite Negative (NEGATIVE) 04/12/24 18:56 Urine Bilirubin Negative (NEGATIVE) 04/12/24 18:56 Urine Urobilinogen Normal (NORMAL) 04/12/24 18:56 Ur Leukocyte Esterase Negative (NEGATIVE) 04/12/24 18:56 Urine RBC 0-2 /HPF (0-3) 04/12/24 18:56 Urine WBC 0-2 /HPF (0-5) 04/12/24 18:56 Ur Squamous Epith Cells Rare /HPF (NEGATIVE) 04/12/24 18:56 Urine Bacteria Trace /HPF (NEGATIVE) 04/12/24 18:56 Urine Yeast Rare /HPF (NEGATIVE) 04/12/24 18:56 Ur Culture Indicated? No/not indicated 04/12/24 18:56 Vancomycin Trough 15.3 ug/mL (15-20) 04/14/24 20:45 Plan (1) Generalized weakness: Status: Acute (2) Brain TIA: Status: Acute (3) Non-healing wound of left heel: Status: Chronic (4) Dehydration: Status: Acute (5) Hypomagnesemia: Status: Acute (6) Anemia: Status: Chronic
[2024-04-16] MEDS: OMNIPAQUE 350 mg/mL 100 mL BTL 100 ML ONE (06:01)
[2024-04-16] MEDS: MAALOX or MYLANTA PO PRN (06:18)
[2024-04-16 06:59] LABS: BASOPHILS # (AUTO) 0.1 X10^3/uL (0.0-0.1); BASOPHILS % (AUTO) 1.3 % (0.2-1.0); EOSINOPHILS % (AUTO) 0.2 % (0.9-2.9); HEMATOCRIT 36.6 % (42.0-54.0); HEMOGLOBIN 13.1 g/dL (13.5-18.0); LYMPHOCYTES # (AUTO) 1.5 X10^3/uL (1.3-2.9); LYMPHOCYTES % (AUTO) 25.4 % (21.0-51.0); MEAN CORPUSCULAR HEMOGLOBIN 30.3 pg (27.0-34.0); MEAN CORPUSCULAR HGB CONC 35.8 g/dL (33.0-35.0); MEAN CORPUSCULAR VOLUME 84.7 fL (80.0-100.0); MEAN PLATELET VOLUME 8.1 fL (7.4-11.0); MONOCYTES # (AUTO) 0.5 x10^3/uL (0.3-0.8); MONOCYTES % (AUTO) 9.3 % (0.0-13.0); NEUTROPHILS # (AUTO) 3.7 x10^3/uL (2.2-4.8); NEUTROPHILS % (AUTO) 63.8 % (42.0-75.0); PLATELET COUNT 96 X10^3/uL (150.0-450.0); RED BLOOD COUNT 4.32 X10^6/uL (4.7-6.0); RED CELL DISTRIBUTION WIDTH 13.8 % (11.6-16.5); WHITE BLOOD COUNT 5.8 X10^3/uL (3.6-10.0)
[2024-04-16 07:13] LABS: ALANINE AMINOTRANSFERASE 82 Units/L (12-78); ALBUMIN 3.1 g/dL (3.4-5.0); ALKALINE PHOSPHATASE 88 Units/L (46-116); ASPARTATE AMINO TRANSFERASE 39 Units/L (15-37); BLOOD UREA NITROGEN 21 mg/dL (7-18); CALCIUM 8.5 mg/dL (8.5-10.1); CARBON DIOXIDE 20.1 mmol/L (21-32); CHLORIDE 97 mmol/L (98-107); COR CA(FOR HYPOALB) 9.2 mg/dL (8.5-10.1); COR NA(FOR HYPERGLY) 135 mmol/L (136-145); CREATININE 1.08 mg/dL (0.70-1.30); GLUCOSE 122 mg/dL (65-99); POTASSIUM 3.3 mmol/L (3.5-5.1); SODIUM 134 mmol/L (136-145); TOTAL PROTEIN 6.8 g/dL (6.4-8.2); eGFR NON BLACK RACES > 60 (>60)
[2024-04-16] MEDS ORDERED: CONSULT PHARMACY - POTASSIUM & MAGNESIUM XX SCH (08:00)
[2024-04-16] MEDS: K-DUR TAB 20 MEQ PO SCH (08:41)
[2024-04-16 09:42] LABS: CREATININE 0.99 mg/dL (0.70-1.30); VANCOMYCIN,TROUGH 19.7 ug/mL (15-20)
--- NOTE | 2024-04-16 12:16 | PCM.PROG ---
Progress Note Progress Note for Day of Date of Exam: 04/16/24 Subjective Subjective: Patient seen at bedside, no acute events overnight. He had 1 BM yesterday, family reports patient having diarrhea. Stool studies have not been collected. He has not been eating much due to N/V. He also reports having abdominal pain. CT-abd/pelvis done earlier did not show any acute changes. His leg weakness has improved. He has been admitted for TIA, altered mental status, electrolyte imbalance and lower extremity weakness. All the workup including CT brain, MRI brain, carotid ultrasound and echo has not shown any acute changes concerning for infarct or hemorrhage. CM working on discharge planning to senior care facility. He also has an ulcer on his right heel. He remains on IV antibiotics. Labs/imaging reviewed: -WBC 5.8 hemoglobin 13.1 sodium 135 potassium 3.3 creatinine 1.08 -Blood cultures x 1 contamination -Wound Cx: negative Plan: Continue antibiotics. Will change to IV Zofran, order KUB. Add Ensure. Add probiotics. Continue pepcid. Continue wound care as per nursing. Continue current medications. Replace electrolytes as needed. Encourage p.o. intake. Continue physical therapy as tolerated. Follow-up pending stool studies. CM working on discharge planning to SNF. Monitor AM labs/imaging. Past Medical Family Social History Allergies: Allergies No Known Drug Allergies Allergy (Unknown, Verified 04/12/24 16:49) Onset Date: 10/04/2017 Vital Signs and I&O's Vital Signs: Vital Signs Temperature 97.8 F Temperature 97.8 F Pulse Rate [Left Radial] 82 Pulse Rate [Left Radial] 82 Respiratory Rate 17 Respiratory Rate 18 Blood Pressure [Left Arm] 147/75 Blood Pressure [Left Arm] 137/72 O2 Sat by Pulse Oximetry 91 O2 Sat by Pulse Oximetry 91 Intake and Output: Intake & Output 04/13/24 04/14/24 04/15/24 04/17/24 23:59 23:59 23:59 00:59 Intake Total 974 / 974 3759 / 3759 2722 / 2722 525 / 525 Output Total 700 / 700 400 / 400 750 / 750 Balance 274 / 274 3359 / 3359 1971 525 / 525 Physical Exam Oriented: Normal Eyes: Normal Ear: Normal Nose: Normal Throat: Normal Respiratory: Generalized and Diminished Cardiovascular: Normal : Normal Auscultation: Bowel Sounds: Normal Tenderness: Normal Skin: Normal Musculoskeletal: Motor Deficit (lifting up bilateral lower extremities, able to move foot and toes, sensation intact ) Psychiatric: Normal Mood Description: Calm Affect: Normal Speech Pattern: Clear Laboratory and Diagnostics 04/16/24 05:35 04/16/24 08:50 Labs: 04/12/24 17:14 Blood Blood Culture - Final 04/12/24 17:06 Blood Blood Culture - Preliminary Laboratory WBC 5.8 X10^3/uL (3.6-10.0) 04/16/24 05:35 RBC 4.32 X10^6/uL (4.7-6.0) L 04/16/24 05:35 Hgb 13.1 g/dL (13.5-18.0) L 04/16/24 05:35 Hct 36.6 % (42.0-54.0) L 04/16/24 05:35 MCV 84.7 fL (80.0-100.0) 04/16/24 05:35 MCH 30.3 pg (27.0-34.0) 04/16/24 05:35 MCHC 35.8 g/dL (33.0-35.0) H 04/16/24 05:35 RDW 13.8 % (11.6-16.5) 04/16/24 05:35 Plt Count 96 X10^3/uL (150.0-450.0) L 04/16/24 05:35 MPV 8.1 fL (7.4-11.0) 04/16/24 05:35 Neut % (Auto) 63.8 % (42.0-75.0) 04/16/24 05:35 Lymph % (Auto) 25.4 % (21.0-51.0) 04/16/24 05:35 [place] % (Auto) 9.3 % (0.0-13.0) 04/16/24 05:35 Eos % (Auto) 0.2 % (0.9-2.9) L 04/16/24 05:35 Baso % (Auto) 1.3 % (0.2-1.0) H 04/16/24 05:35 Neut # (Auto) 3.7 x10^3/uL (2.2-4.8) 04/16/24 05:35 Lymph # (Auto) 1.5 X10^3/uL (1.3-2.9) 04/16/24 05:35 [place] # (Auto) 0.5 x10^3/uL (0.3-0.8) 04/16/24 05:35 Eos # (Auto) 0.0 x10^3/uL (0.0-0.2) 04/16/24 05:35 Baso # (Auto) 0.1 X10^3/uL (0.0-0.1) 04/16/24 05:35 Absolute Nucleated RBC 0.2 /100WBC 04/16/24 05:35 PT 14.9 SECONDS (11.8-14.3) 04/13/24 05:28 INR Target Range - 04/13/24 05:28 INR 1.20 (0.8-1.3) 04/13/24 05:28 APTT 28.8 SECONDS (22.9-36.5) 04/13/24 05:28 PTT Comment - 04/13/24 05:28 Sodium 134 mmol/L (136-145) L 04/16/24 05:35 Corrected Sodium 135 mmol/L (136-145) L 04/16/24 05:35 Potassium 3.3 mmol/L (3.5-5.1) L 04/16/24 05:35 Chloride 97 mmol/L (98-107) L 04/16/24 05:35 Carbon Dioxide 20.1 mmol/L (21-32) L 04/16/24 05:35 BUN 21 mg/dL (7-18) H 04/16/24 05:35 Creatinine 0.99 mg/dL (0.70-1.30) 04/16/24 08:50 Est GFR (MDRD) Af Amer > 60 (>60) 04/16/24 05:35 Est GFR (MDRD) Non-Af > 60 (>60) 04/16/24 05:35 Glucose 122 mg/dL (65-99) H 04/16/24 05:35 POC Glucose (mg/dL) 140 mg/dL (65-99) H 04/16/24 11:37 Calcium 8.5 mg/dL (8.5-10.1) 04/16/24 05:35 Corrected Calcium 9.2 mg/dL (8.5-10.1) 04/16/24 05:35 Magnesium 2.0 mg/dL (2.0-2.9) 04/16/24 05:35 Total Bilirubin 0.40 mg/dL (0.2-1.0) 04/16/24 05:35 AST 39 Units/L (15-37) H 04/16/24 05:35 ALT 82 Units/L (12-78) H 04/16/24 05:35 Alkaline Phosphatase 88 Units/L (46-116) 04/16/24 05:35 Creatine Kinase 67 Units/L (39-308) 04/13/24 08:10 Troponin I High Sens 14.2 ng/L (4.0-60.0) 04/13/24 08:10 B-Natriuretic Peptide 40.6 pg/mL (0-79) 04/12/24 17:06 Total Protein 6.8 g/dL (6.4-8.2) 04/16/24 05:35 Albumin 3.1 g/dL (3.4-5.0) L 04/16/24 05:35 Globulin 3.7 g/dL (2.5-4.5) 04/16/24 05:35 Albumin/Globulin Ratio 0.8 Ratio (1.1-2.1) L 04/16/24 05:35 Triglycerides 53 mg/dL (0-150) 04/13/24 05:28 Cholesterol < 50 mg/dL (0-200) 04/13/24 05:28 LDL Cholesterol, Calc 2 mg/dL (0-100) 04/13/24 05:28 HDL Cholesterol 37 mg/dL (40-60) L 04/13/24 05:28 Cholesterol/HDL Ratio 1.4 (0.0-5.0) 04/13/24 05:28 Specimen Type Clean catch urine 04/12/24 18:56 Urine Color Yellow (YELLOW) 04/12/24 18:56 Urine Appearance Clear (CLEAR) 04/12/24 18:56 Urine pH 6.0 (5.0 - 8.0) 04/12/24 18:56 Ur Specific [place] 1.020 (1.000-1.030) 04/12/24 18:56 Urine Protein 2+ (NEGATIVE) 04/12/24 18:56 Urine Glucose (UA) 4+ (NEGATIVE) 04/12/24 18:56 Urine Ketones 1+ (NEGATIVE) 04/12/24 18:56 Urine Blood 1+ (NEGATIVE) 04/12/24 18:56 Urine Nitrite Negative (NEGATIVE) 04/12/24 18:56 Urine Bilirubin Negative (NEGATIVE) 04/12/24 18:56 Urine Urobilinogen Normal (NORMAL) 04/12/24 18:56 Ur Leukocyte Esterase Negative (NEGATIVE) 04/12/24 18:56 Urine RBC 0-2 /HPF (0-3) 04/12/24 18:56 Urine WBC 0-2 /HPF (0-5) 04/12/24 18:56 Ur Squamous Epith Cells Rare /HPF (NEGATIVE) 04/12/24 18:56 Urine Bacteria Trace /HPF (NEGATIVE) 04/12/24 18:56 Urine Yeast Rare /HPF (NEGATIVE) 04/12/24 18:56 Ur Culture Indicated? No/not indicated 04/12/24 18:56 Vancomycin Trough 19.7 ug/mL (15-20) 04/16/24 08:50 Plan (1) Generalized weakness: Status: Acute (2) Brain TIA: Status: Acute (3) Non-healing wound of left heel: Status: Chronic (4) Dehydration: Status: Acute (5) Hypomagnesemia: Status: Acute (6) Anemia: Status: Chronic (7) Nausea & vomiting: Status: Acute
[2024-04-16] MEDS: VISBIOME PROBIOTIC CAP 112.5 B or equivalent PO SCH (13:13)
[2024-04-16] MEDS ORDERED: BUTT CREAM (COMPOUND) TOP PRN (13:41)
[2024-04-16 15:22] LABS: CRYPTOSPORIDIUM PARVUM ANTIGEN NEGATIVE (NEGATIVE); GIARDIA LAMBLIA ANTIGEN NEGATIVE (NEGATIVE)
[2024-04-16] MEDS: GLUCOPHAGE ONE (16:57)
[2024-04-17] MEDS ORDERED: GLUCOPHAGE ONE ×2 (05:28→15:54)
[2024-04-17 06:22] LABS: BASOPHILS % (AUTO) 0.5 % (0.2-1.0); EOSINOPHILS % (AUTO) 0.1 % (0.9-2.9); HEMATOCRIT 36.4 % (42.0-54.0); HEMOGLOBIN 12.9 g/dL (13.5-18.0); LYMPHOCYTES # (AUTO) 0.8 X10^3/uL (1.3-2.9); LYMPHOCYTES % (AUTO) 18.8 % (21.0-51.0); MEAN CORPUSCULAR HEMOGLOBIN 29.9 pg (27.0-34.0); MEAN CORPUSCULAR HGB CONC 35.5 g/dL (33.0-35.0); MEAN CORPUSCULAR VOLUME 84.2 fL (80.0-100.0); MEAN PLATELET VOLUME 8.1 fL (7.4-11.0); MONOCYTES # (AUTO) 0.4 x10^3/uL (0.3-0.8); MONOCYTES % (AUTO) 10.9 % (0.0-13.0); NEUTROPHILS # (AUTO) 2.9 x10^3/uL (2.2-4.8); NEUTROPHILS % (AUTO) 69.7 % (42.0-75.0); PLATELET COUNT 126 X10^3/uL (150.0-450.0); RED BLOOD COUNT 4.32 X10^6/uL (4.7-6.0); RED CELL DISTRIBUTION WIDTH 13.8 % (11.6-16.5); WHITE BLOOD COUNT 4.1 X10^3/uL (3.6-10.0)
[2024-04-17 06:41] LABS: ALANINE AMINOTRANSFERASE 65 Units/L (12-78); ALKALINE PHOSPHATASE 79 Units/L (46-116); ASPARTATE AMINO TRANSFERASE 37 Units/L (15-37); BLOOD UREA NITROGEN 22 mg/dL (7-18); CALCIUM 8.4 mg/dL (8.5-10.1); CARBON DIOXIDE 20.6 mmol/L (21-32); CHLORIDE 96 mmol/L (98-107); COR CA(FOR HYPOALB) 9.2 mg/dL (8.5-10.1); COR NA(FOR HYPERGLY) 135 mmol/L (136-145); CREATININE 1.02 mg/dL (0.70-1.30); GLUCOSE 167 mg/dL (65-99); MAGNESIUM 2.2 mg/dL (2.0-2.9); POTASSIUM 3.5 mmol/L (3.5-5.1); SODIUM 133 mmol/L (136-145); TOTAL PROTEIN 6.5 g/dL (6.4-8.2); eGFR NON BLACK RACES > 60 (>60)
[2024-04-17] MEDS ORDERED: CONSULT PHARMACY - POTASSIUM & MAGNESIUM XX SCH (07:00)
--- NOTE | 2024-04-17 07:47 | RAD ---
EXAM: KUB HISTORY: ABDOMINAL PAIN ; COMPARISON: 04/14/2024 FINDINGS: Evaluation of the abdomen demonstrates a nonobstructive bowel gas pattern. Moderate colonic fecal bur den. No evidence of pneumoperitoneum. No pathologic soft tissue calcification. No acute osseous abnor mality. IMPRESSION: Moderate colonic stool with probable constipation. THIS IS AN ELECTRONICALLY VERIFIED FINAL REPORT 04/17/2024 7:44 AM - Electronically signed by Jose Manuel uCellar MD
[2024-04-17] MEDS: K-DUR TAB 20 MEQ PO SCH (09:56)
--- NOTE | 2024-04-17 10:48 | PCM.PROG ---
Progress Note Progress Note for Day of Date of Exam: 04/17/24 Subjective Subjective: Patient seen at bedside, no acute events overnight. He has not been eating much. KUB yesterday showed constipation. He did have an episode of diarrhea this morning as per at bedside. She also reports he has been coughing more. He has been admitted for TIA, altered mental status, electrolyte imbalance and lower extremity weakness. All the workup including CT brain, MRI brain, carotid ultrasound and echo has not shown any acute changes concerning for infarct or hemorrhage. [facility] He also has an ulcer on his right heel. He remains on IV antibiotics. Labs/imaging reviewed: -WBC 4.1 hemoglobin 12.9 sodium 135 potassium 3.5 creatinine 1.02 -Blood cultures x 1 contamination -Wound Cx: negative Plan: Order CXR. Add megace for appetite. Encouraged PO intake. Continue antibiotics. Continue Ensure and probiotics. Continue pepcid. Continue wound care as per nursing. Continue current medications. Replace electrolytes as needed. Continue physical therapy as tolerated. CM working on discharge planning to SNF. Monitor AM labs/imaging. Past Medical Family Social History Allergies: Allergies No Known Drug Allergies Allergy (Unknown, Verified 04/12/24 16:49) Onset Date: 10/04/2017 Vital Signs and I&O's Vital Signs: Vital Signs Temperature 98.6 F Temperature 99.0 F Pulse Rate [Left Radial] 91 Pulse Rate [Left Radial] 90 Respiratory Rate 19 Respiratory Rate 20 Blood Pressure [Left Arm] 121/71 Blood Pressure [Left Arm] 139/77 O2 Sat by Pulse Oximetry 91 O2 Sat by Pulse Oximetry 92 Intake and Output: Intake & Output 04/14/24 04/15/24 04/16/24 04/17/24 22:59 22:59 23:59 23:59 Intake Total 840 / 840 Output Total Balance 840 / 840 Physical Exam Oriented: Normal Eyes: Normal Ear: Normal Nose: Normal Throat: Normal Respiratory: Generalized and Diminished Cardiovascular: Normal Auscultation: Bowel Sounds: Normal Palpation: Normal Tenderness: Normal Skin: Normal Musculoskeletal: Motor Deficit (lifting up bilateral lower extremities, able to move foot and toes, sensation intact ) Psychiatric: Normal Mood Description: Calm Affect: Normal Speech Pattern: Clear Laboratory and Diagnostics 04/17/24 05:24 04/17/24 05:24 Labs: 04/16/24 13:35 Stool - Final 04/12/24 17:14 Blood Blood Culture - Final 04/12/24 17:06 Blood Blood Culture - Preliminary Laboratory WBC 4.1 X10^3/uL (3.6-10.0) 04/17/24 05:24 RBC 4.32 X10^6/uL (4.7-6.0) L 04/17/24 05:24 Hgb 12.9 g/dL (13.5-18.0) L 04/17/24 05:24 Hct 36.4 % (42.0-54.0) L 04/17/24 05:24 MCV 84.2 fL (80.0-100.0) 04/17/24 05:24 MCH 29.9 pg (27.0-34.0) 04/17/24 05:24 MCHC 35.5 g/dL (33.0-35.0) H 04/17/24 05:24 RDW 13.8 % (11.6-16.5) 04/17/24 05:24 Plt Count 126 X10^3/uL (150.0-450.0) L 04/17/24 05:24 MPV 8.1 fL (7.4-11.0) 04/17/24 05:24 Neut % (Auto) 69.7 % (42.0-75.0) 04/17/24 05:24 Lymph % (Auto) 18.8 % (21.0-51.0) L 04/17/24 05:24 [place] % (Auto) 10.9 % (0.0-13.0) 04/17/24 05:24 Eos % (Auto) 0.1 % (0.9-2.9) L 04/17/24 05:24 Baso % (Auto) 0.5 % (0.2-1.0) 04/17/24 05:24 Neut # (Auto) 2.9 x10^3/uL (2.2-4.8) 04/17/24 05:24 Lymph # (Auto) 0.8 X10^3/uL (1.3-2.9) L 04/17/24 05:24 [place] # (Auto) 0.4 x10^3/uL (0.3-0.8) 04/17/24 05:24 Eos # (Auto) 0.0 x10^3/uL (0.0-0.2) 04/17/24 05:24 Baso # (Auto) 0.0 X10^3/uL (0.0-0.1) 04/17/24 05:24 Absolute Nucleated RBC 0.3 /100WBC 04/17/24 05:24 PT 14.9 SECONDS (11.8-14.3) 04/13/24 05:28 INR Target Range - 04/13/24 05:28 INR 1.20 (0.8-1.3) 04/13/24 05:28 APTT 28.8 SECONDS (22.9-36.5) 04/13/24 05:28 PTT Comment - 04/13/24 05:28 Sodium 133 mmol/L (136-145) L 04/17/24 05:24 Corrected Sodium 135 mmol/L (136-145) L 04/17/24 05:24 Potassium 3.5 mmol/L (3.5-5.1) 04/17/24 05:24 Chloride 96 mmol/L (98-107) L 04/17/24 05:24 Carbon Dioxide 20.6 mmol/L (21-32) L 04/17/24 05:24 BUN 22 mg/dL (7-18) H 04/17/24 05:24 Creatinine 1.02 mg/dL (0.70-1.30) 04/17/24 05:24 Est GFR (MDRD) Af Amer > 60 (>60) 04/17/24 05:24 Est GFR (MDRD) Non-Af > 60 (>60) 04/17/24 05:24 Glucose 167 mg/dL (65-99) H 04/17/24 05:24 POC Glucose (mg/dL) 164 mg/dL (65-99) H 04/17/24 05:37 Calcium 8.4 mg/dL (8.5-10.1) L 04/17/24 05:24 Corrected Calcium 9.2 mg/dL (8.5-10.1) 04/17/24 05:24 Magnesium 2.2 mg/dL (2.0-2.9) 04/17/24 05:24 Total Bilirubin 0.40 mg/dL (0.2-1.0) 04/17/24 05:24 AST 37 Units/L (15-37) 04/17/24 05:24 ALT 65 Units/L (12-78) 04/17/24 05:24 Alkaline Phosphatase 79 Units/L (46-116) 04/17/24 05:24 Creatine Kinase 67 Units/L (39-308) 04/13/24 08:10 Troponin I High Sens 14.2 ng/L (4.0-60.0) 04/13/24 08:10 B-Natriuretic Peptide 40.6 pg/mL (0-79) 04/12/24 17:06 Total Protein 6.5 g/dL (6.4-8.2) 04/17/24 05:24 Albumin 3.0 g/dL (3.4-5.0) L 04/17/24 05:24 Globulin 3.5 g/dL (2.5-4.5) 04/17/24 05:24 Albumin/Globulin Ratio 0.9 Ratio (1.1-2.1) L 04/17/24 05:24 Triglycerides 53 mg/dL (0-150) 04/13/24 05:28 Cholesterol < 50 mg/dL (0-200) 04/13/24 05:28 LDL Cholesterol, Calc 2 mg/dL (0-100) 04/13/24 05:28 HDL Cholesterol 37 mg/dL (40-60) L 04/13/24 05:28 Cholesterol/HDL Ratio 1.4 (0.0-5.0) 04/13/24 05:28 Specimen Type Clean catch urine 04/12/24 18:56 Urine Color Yellow (YELLOW) 04/12/24 18:56 Urine Appearance Clear (CLEAR) 04/12/24 18:56 Urine pH 6.0 (5.0 - 8.0) 04/12/24 18:56 Ur Specific [place] 1.020 (1.000-1.030) 04/12/24 18:56 Urine Protein 2+ (NEGATIVE) 04/12/24 18:56 Urine Glucose (UA) 4+ (NEGATIVE) 04/12/24 18:56 Urine Ketones 1+ (NEGATIVE) 04/12/24 18:56 Urine Blood 1+ (NEGATIVE) 04/12/24 18:56 Urine Nitrite Negative (NEGATIVE) 04/12/24 18:56 Urine Bilirubin Negative (NEGATIVE) 04/12/24 18:56 Urine Urobilinogen Normal (NORMAL) 04/12/24 18:56 Ur Leukocyte Esterase Negative (NEGATIVE) 04/12/24 18:56 Urine RBC 0-2 /HPF (0-3) 04/12/24 18:56 Urine WBC 0-2 /HPF (0-5) 04/12/24 18:56 Ur Squamous Epith Cells Rare /HPF (NEGATIVE) 04/12/24 18:56 Urine Bacteria Trace /HPF (NEGATIVE) 04/12/24 18:56 Urine Yeast Rare /HPF (NEGATIVE) 04/12/24 18:56 Ur Culture Indicated? No/not indicated 04/12/24 18:56 Stl Occult Blood (IFOB) Negative (NEGATIVE) 04/16/24 13:35 Stool for White Cells Negative (NEGATIVE) 04/16/24 13:35 Stl C. diff Tox B Gene Negative (NEGATIVE) 04/16/24 13:35 Stl C. diff [id number] Presumptive negative (NEGATIVE) 04/16/24 13:35 Vancomycin Trough 19.7 ug/mL (15-20) 04/16/24 08:50 Cryptosporid parvum Ag Negative (NEGATIVE) 04/16/24 13:35 Giardia lamblia Ag Negative (NEGATIVE) 04/16/24 13:35 Plan (1) Decreased appetite: Status: Acute (2) Generalized weakness: Status: Acute (3) Brain TIA: Status: Acute (4) Non-healing wound of left heel: Status: Chronic (5) Dehydration: Status: Acute (6) Hypomagnesemia: Status: Acute (7) Anemia: Status: Chronic (8) Nausea & vomiting: Status: Acute
[2024-04-17] MEDS: MEGACE PO SCH (11:21)
[2024-04-17] MEDS ORDERED: DUONEB 0.5 MG/3 MG (3 mL) NEB ONE (12:55)
[2024-04-17] MEDS: DUONEB 0.5 MG/3 MG (3 mL) NEB SCH (13:49)
--- NOTE | 2024-04-17 15:22 | RAD ---
EXAM: CHEST, 1 VIEW HISTORY: cough; COMPARISON: No relevant prior studies were available for comparison at the time of interpretation. TECHNIQUE: CHEST, 1 VIEW FINDINGS: Chest: Lines and tubes: Cardiac leads overlie the chest. Mediastinum: Median sternotomy wires are present. Cardiac shadow is normal in size. Pulmonary vessels: No pulmonary vascular congestion. Lung mederos: No suspicious airspace opacity. Pleura: No effusion. No pneumothorax. Bones and soft tissues: No acute osseous or soft tissue abnormality. IMPRESSION: 1. No acute cardiopulmonary abnormality THIS IS AN ELECTRONICALLY VERIFIED FINAL REPORT 04/17/2024 3:08 PM - Electronically signed by Juan F Daniel MD
[2024-04-18] MEDS ORDERED: GLUCOPHAGE ONE (04:23)
[2024-04-18 05:55] LABS: BASOPHILS % (AUTO) 0.4 % (0.2-1.0); EOSINOPHILS % (AUTO) 0.4 % (0.9-2.9); HEMATOCRIT 34.1 % (42.0-54.0); HEMOGLOBIN 12.2 g/dL (13.5-18.0); LYMPHOCYTES # (AUTO) 1.1 X10^3/uL (1.3-2.9); LYMPHOCYTES % (AUTO) 22.5 % (21.0-51.0); MEAN CORPUSCULAR HEMOGLOBIN 30.2 pg (27.0-34.0); MEAN CORPUSCULAR HGB CONC 35.8 g/dL (33.0-35.0); MEAN CORPUSCULAR VOLUME 84.4 fL (80.0-100.0); MEAN PLATELET VOLUME 8.2 fL (7.4-11.0); MONOCYTES # (AUTO) 0.6 x10^3/uL (0.3-0.8); MONOCYTES % (AUTO) 12.8 % (0.0-13.0); NEUTROPHILS % (AUTO) 63.9 % (42.0-75.0); PLATELET COUNT 137 X10^3/uL (150.0-450.0); RED BLOOD COUNT 4.04 X10^6/uL (4.7-6.0); RED CELL DISTRIBUTION WIDTH 14.1 % (11.6-16.5); WHITE BLOOD COUNT 4.8 X10^3/uL (3.6-10.0)
[2024-04-18 06:11] LABS: ALANINE AMINOTRANSFERASE 57 Units/L (12-78); ALBUMIN 2.8 g/dL (3.4-5.0); ALKALINE PHOSPHATASE 74 Units/L (46-116); ASPARTATE AMINO TRANSFERASE 28 Units/L (15-37); BLOOD UREA NITROGEN 24 mg/dL (7-18); CALCIUM 8.4 mg/dL (8.5-10.1); CARBON DIOXIDE 22.1 mmol/L (21-32); CHLORIDE 99 mmol/L (98-107); COR CA(FOR HYPOALB) 9.4 mg/dL (8.5-10.1); COR NA(FOR HYPERGLY) 134 mmol/L (136-145); CREATININE 1.14 mg/dL (0.70-1.30); GLUCOSE 164 mg/dL (65-99); MAGNESIUM 2.3 mg/dL (2.0-2.9); POTASSIUM 3.4 mmol/L (3.5-5.1); SODIUM 132 mmol/L (136-145); TOTAL PROTEIN 6.4 g/dL (6.4-8.2); eGFR NON BLACK RACES > 60 (>60)
[2024-04-18] MEDS ORDERED: CONSULT PHARMACY - POTASSIUM & MAGNESIUM XX SCH (07:00)
[2024-04-18] MEDS: K-DUR TAB 20 MEQ PO SCH ×2 (08:10→10:29)
--- NOTE | 2024-04-18 10:24 | PCM.PROG ---
Progress Note Progress Note for Day of Date of Exam: 04/18/24 Subjective Subjective: Patient seen at bedside, no acute events overnight. He is eating better today. CXR was negative. He continues to work with PT/OT as tolerated. He has been admitted for TIA, altered mental status, electrolyte imbalance and lower extremity weakness. All the workup including CT brain, MRI brain, carotid ultrasound and echo has not shown any acute changes concerning for infarct or hemorrhage. CM [facility] He also has an ulcer on his right heel. He remains on IV antibiotics. Labs/imaging reviewed: -WBC 4.8 hemoglobin 12.2 sodium 137 potassium 3.4 creatinine 1.14 -Blood cultures x 1 contamination -Wound Cx: negative Plan: Continue megace. Encouraged PO intake. Continue antibiotics. Continue Ensure and probiotics. Continue pepcid. Continue wound care as per nursing. Continue current medications. Replace electrolytes as needed. Continue physical therapy as tolerated. CM working on discharge planning to SNF. Monitor AM labs/imaging. Past Medical Family Social History Allergies: Allergies No Known Drug Allergies Allergy (Unknown, Verified 04/12/24 16:49) Onset Date: 10/04/2017 Vital Signs and I&O's Vital Signs: Vital Signs Temperature 99.4 F Temperature 98.3 F Pulse Rate [Left Radial] 89 Pulse Rate [Left Radial] 87 Pulse Rate 75 Respiratory Rate 19 Respiratory Rate 20 Blood Pressure [Left Arm] 127/71 Blood Pressure [Left Arm] 130/72 O2 Sat by Pulse Oximetry 90 O2 Sat by Pulse Oximetry 94 O2 Sat by Pulse Oximetry 90 Intake and Output: Intake & Output 04/15/24 04/16/24 04/17/24 04/18/24 22:59 23:59 23:59 23:59 Intake Total 2504 / 2504 325 / 325 Output Total 700 / 700 Balance 2504 / 2504 -375 / -375 Physical Exam Eyes: Normal Ear: Normal Nose: Normal Throat: Normal Respiratory: Generalized and Diminished Cardiovascular: Normal : Normal Auscultation: Bowel Sounds: Normal Palpation: Normal Tenderness: Normal Skin: Normal Musculoskeletal: Motor Deficit (lifting up bilateral lower extremities, able to move foot and toes, sensation intact ) Psychiatric: Normal Mood Description: Calm Affect: Normal Speech Pattern: Clear Laboratory and Diagnostics 04/18/24 05:15 04/18/24 05:15 Labs: 04/16/24 13:35 Stool Stool Culture - Final 04/16/24 13:35 Stool - Final 04/12/24 17:14 Blood Blood Culture - Final 04/12/24 17:06 Blood Blood Culture - Preliminary Laboratory WBC 4.8 X10^3/uL (3.6-10.0) 04/18/24 05:15 RBC 4.04 X10^6/uL (4.7-6.0) L 04/18/24 05:15 Hgb 12.2 g/dL (13.5-18.0) L 04/18/24 05:15 Hct 34.1 % (42.0-54.0) L 04/18/24 05:15 MCV 84.4 fL (80.0-100.0) 04/18/24 05:15 MCH 30.2 pg (27.0-34.0) 04/18/24 05:15 MCHC 35.8 g/dL (33.0-35.0) H 04/18/24 05:15 RDW 14.1 % (11.6-16.5) 04/18/24 05:15 Plt Count 137 X10^3/uL (150.0-450.0) L 04/18/24 05:15 MPV 8.2 fL (7.4-11.0) 04/18/24 05:15 Neut % (Auto) 63.9 % (42.0-75.0) 04/18/24 05:15 Lymph % (Auto) 22.5 % (21.0-51.0) 04/18/24 05:15 [place] % (Auto) 12.8 % (0.0-13.0) 04/18/24 05:15 Eos % (Auto) 0.4 % (0.9-2.9) L 04/18/24 05:15 Baso % (Auto) 0.4 % (0.2-1.0) 04/18/24 05:15 Neut # (Auto) 3.0 x10^3/uL (2.2-4.8) 04/18/24 05:15 Lymph # (Auto) 1.1 X10^3/uL (1.3-2.9) L 04/18/24 05:15 [place] # (Auto) 0.6 x10^3/uL (0.3-0.8) 04/18/24 05:15 Eos # (Auto) 0.0 x10^3/uL (0.0-0.2) 04/18/24 05:15 Baso # (Auto) 0.0 X10^3/uL (0.0-0.1) 04/18/24 05:15 Absolute Nucleated RBC 0.3 /100WBC 04/18/24 05:15 PT 14.9 SECONDS (11.8-14.3) 04/13/24 05:28 INR Target Range - 04/13/24 05:28 INR 1.20 (0.8-1.3) 04/13/24 05:28 APTT 28.8 SECONDS (22.9-36.5) 04/13/24 05:28 PTT Comment - 04/13/24 05:28 Sodium 132 mmol/L (136-145) L 04/18/24 05:15 Corrected Sodium 134 mmol/L (136-145) L 04/18/24 05:15 Potassium 3.4 mmol/L (3.5-5.1) L 04/18/24 05:15 Chloride 99 mmol/L (98-107) 04/18/24 05:15 Carbon Dioxide 22.1 mmol/L (21-32) 04/18/24 05:15 BUN 24 mg/dL (7-18) H 04/18/24 05:15 Creatinine 1.14 mg/dL (0.70-1.30) 04/18/24 05:15 Est GFR (MDRD) Af Amer > 60 (>60) 04/18/24 05:15 Est GFR (MDRD) Non-Af > 60 (>60) 04/18/24 05:15 Glucose 164 mg/dL (65-99) H 04/18/24 05:15 POC Glucose (mg/dL) 148 mg/dL (65-99) H 04/18/24 05:42 Calcium 8.4 mg/dL (8.5-10.1) L 04/18/24 05:15 Corrected Calcium 9.4 mg/dL (8.5-10.1) 04/18/24 05:15 Magnesium 2.3 mg/dL (2.0-2.9) 04/18/24 05:15 Total Bilirubin 0.40 mg/dL (0.2-1.0) 04/18/24 05:15 AST 28 Units/L (15-37) 04/18/24 05:15 ALT 57 Units/L (12-78) 04/18/24 05:15 Alkaline Phosphatase 74 Units/L (46-116) 04/18/24 05:15 Creatine Kinase 67 Units/L (39-308) 04/13/24 08:10 Troponin I High Sens 14.2 ng/L (4.0-60.0) 04/13/24 08:10 B-Natriuretic Peptide 40.6 pg/mL (0-79) 04/12/24 17:06 Total Protein 6.4 g/dL (6.4-8.2) 04/18/24 05:15 Albumin 2.8 g/dL (3.4-5.0) L 04/18/24 05:15 Globulin 3.6 g/dL (2.5-4.5) 04/18/24 05:15 Albumin/Globulin Ratio 0.8 Ratio (1.1-2.1) L 04/18/24 05:15 Triglycerides 53 mg/dL (0-150) 04/13/24 05:28 Cholesterol < 50 mg/dL (0-200) 04/13/24 05:28 LDL Cholesterol, Calc 2 mg/dL (0-100) 04/13/24 05:28 HDL Cholesterol 37 mg/dL (40-60) L 04/13/24 05:28 Cholesterol/HDL Ratio 1.4 (0.0-5.0) 04/13/24 05:28 Specimen Type Clean catch urine 04/12/24 18:56 Urine Color Yellow (YELLOW) 04/12/24 18:56 Urine Appearance Clear (CLEAR) 04/12/24 18:56 Urine pH 6.0 (5.0 - 8.0) 04/12/24 18:56 Ur Specific [place] 1.020 (1.000-1.030) 04/12/24 18:56 Urine Protein 2+ (NEGATIVE) 04/12/24 18:56 Urine Glucose (UA) 4+ (NEGATIVE) 04/12/24 18:56 Urine Ketones 1+ (NEGATIVE) 04/12/24 18:56 Urine Blood 1+ (NEGATIVE) 04/12/24 18:56 Urine Nitrite Negative (NEGATIVE) 04/12/24 18:56 Urine Bilirubin Negative (NEGATIVE) 04/12/24 18:56 Urine Urobilinogen Normal (NORMAL) 04/12/24 18:56 Ur Leukocyte Esterase Negative (NEGATIVE) 04/12/24 18:56 Urine RBC 0-2 /HPF (0-3) 04/12/24 18:56 Urine WBC 0-2 /HPF (0-5) 04/12/24 18:56 Ur Squamous Epith Cells Rare /HPF (NEGATIVE) 04/12/24 18:56 Urine Bacteria Trace /HPF (NEGATIVE) 04/12/24 18:56 Urine Yeast Rare /HPF (NEGATIVE) 04/12/24 18:56 Ur Culture Indicated? No/not indicated 04/12/24 18:56 Stl Occult Blood (IFOB) Negative (NEGATIVE) 04/16/24 13:35 Stool for White Cells Negative (NEGATIVE) 04/16/24 13:35 Stl C. diff Tox B Gene Negative (NEGATIVE) 04/16/24 13:35 Stl C. diff [id number] Presumptive negative (NEGATIVE) 04/16/24 13:35 Vancomycin Trough 19.7 ug/mL (15-20) 04/16/24 08:50 Random Vancomycin 24.1 ug/mL 04/18/24 08:40 Cryptosporid parvum Ag Negative (NEGATIVE) 04/16/24 13:35 Giardia lamblia Ag Negative (NEGATIVE) 04/16/24 13:35 Plan (1) Decreased appetite: Status: Acute (2) Generalized weakness: Status: Acute (3) Non-healing wound of left heel: Status: Chronic (4) Dehydration: Status: Acute (5) Hypomagnesemia: Status: Acute (6) Anemia: Status: Chronic (7) Nausea & vomiting: Status: Acute
[2024-04-18] MEDS: GLUCOPHAGE ONE (17:09)
[2024-04-19] MEDS ORDERED: GLUCOPHAGE ONE (04:41)
[2024-04-19 05:52] LABS: BASOPHILS % (AUTO) 0.4 % (0.2-1.0); EOSINOPHILS % (AUTO) 0.2 % (0.9-2.9); HEMATOCRIT 31.6 % (42.0-54.0); HEMOGLOBIN 11.4 g/dL (13.5-18.0); LYMPHOCYTES # (AUTO) 1.4 X10^3/uL (1.3-2.9); MEAN CORPUSCULAR HEMOGLOBIN 30.1 pg (27.0-34.0); MEAN CORPUSCULAR VOLUME 83.9 fL (80.0-100.0); MONOCYTES # (AUTO) 0.4 x10^3/uL (0.3-0.8); MONOCYTES % (AUTO) 8.9 % (0.0-13.0); NEUTROPHILS # (AUTO) 2.6 x10^3/uL (2.2-4.8); NEUTROPHILS % (AUTO) 58.5 % (42.0-75.0); PLATELET COUNT 149 X10^3/uL (150.0-450.0); RED BLOOD COUNT 3.77 X10^6/uL (4.7-6.0); RED CELL DISTRIBUTION WIDTH 14.1 % (11.6-16.5); WHITE BLOOD COUNT 4.5 X10^3/uL (3.6-10.0)
[2024-04-19 06:07] LABS: ALANINE AMINOTRANSFERASE 42 Units/L (12-78); ALBUMIN 2.5 g/dL (3.4-5.0); ALKALINE PHOSPHATASE 66 Units/L (46-116); ASPARTATE AMINO TRANSFERASE 18 Units/L (15-37); BLOOD UREA NITROGEN 20 mg/dL (7-18); CALCIUM 8.3 mg/dL (8.5-10.1); CARBON DIOXIDE 23.6 mmol/L (21-32); CHLORIDE 102 mmol/L (98-107); COR CA(FOR HYPOALB) 9.5 mg/dL (8.5-10.1); COR NA(FOR HYPERGLY) 137 mmol/L (136-145); CREATININE 1.12 mg/dL (0.70-1.30); GLUCOSE 159 mg/dL (65-99); POTASSIUM 3.4 mmol/L (3.5-5.1); SODIUM 136 mmol/L (136-145); TOTAL PROTEIN 6.1 g/dL (6.4-8.2); eGFR NON BLACK RACES > 60 (>60)
[2024-04-19] MEDS ORDERED: CONSULT PHARMACY - POTASSIUM & MAGNESIUM XX SCH (08:00)
[2024-04-19] MEDS ORDERED: K-DUR TAB 20 MEQ PO SCH (08:00)
[2024-04-19 09:09] LABS: CREATININE 1.13 mg/dL (0.70-1.30); VANCOMYCIN,TROUGH 14.1 ug/mL (15-20)
[2024-04-19] MEDS: VANCOMYCIN IV *PREMIX 1 G/200 ML BAG 1 G/200 ML PIGGYBACK IV SCH (11:41)
[2024-04-19] MEDS: ELIMITE TOPICAL CREAM TOP NR (16:55)
[2024-04-19] MEDS: ZOFRAN INJ 4 MG VIAL IVP PRN (17:33)
[2024-04-19] MEDS: GLUCOPHAGE ONE (17:43)
[2024-04-20] MEDS ORDERED: GLUCOPHAGE ONE (05:21)
[2024-04-20 05:48] LABS: BASOPHILS % (AUTO) 0.8 % (0.2-1.0); EOSINOPHILS % (AUTO) 1.2 % (0.9-2.9); HEMATOCRIT 31.6 % (42.0-54.0); HEMOGLOBIN 11.4 g/dL (13.5-18.0); LYMPHOCYTES # (AUTO) 1.2 X10^3/uL (1.3-2.9); LYMPHOCYTES % (AUTO) 30.5 % (21.0-51.0); MEAN CORPUSCULAR HEMOGLOBIN 30.1 pg (27.0-34.0); MEAN CORPUSCULAR VOLUME 83.8 fL (80.0-100.0); MEAN PLATELET VOLUME 7.7 fL (7.4-11.0); MONOCYTES # (AUTO) 0.3 x10^3/uL (0.3-0.8); MONOCYTES % (AUTO) 8.6 % (0.0-13.0); NEUTROPHILS # (AUTO) 2.3 x10^3/uL (2.2-4.8); NEUTROPHILS % (AUTO) 58.9 % (42.0-75.0); PLATELET COUNT 166 X10^3/uL (150.0-450.0); RED BLOOD COUNT 3.77 X10^6/uL (4.7-6.0); RED CELL DISTRIBUTION WIDTH 13.9 % (11.6-16.5); WHITE BLOOD COUNT 3.9 X10^3/uL (3.6-10.0)
[2024-04-20 06:40] LABS: ALANINE AMINOTRANSFERASE 35 Units/L (12-78); ALBUMIN 2.5 g/dL (3.4-5.0); ALKALINE PHOSPHATASE 68 Units/L (46-116); ASPARTATE AMINO TRANSFERASE 18 Units/L (15-37); BLOOD UREA NITROGEN 15 mg/dL (7-18); CALCIUM 8.3 mg/dL (8.5-10.1); CARBON DIOXIDE 21.6 mmol/L (21-32); CHLORIDE 102 mmol/L (98-107); COR CA(FOR HYPOALB) 9.5 mg/dL (8.5-10.1); COR NA(FOR HYPERGLY) 137 mmol/L (136-145); CREATININE 0.93 mg/dL (0.70-1.30); GLUCOSE 129 mg/dL (65-99); MAGNESIUM 2.2 mg/dL (2.0-2.9); POTASSIUM 3.7 mmol/L (3.5-5.1); SODIUM 136 mmol/L (136-145); TOTAL PROTEIN 6.1 g/dL (6.4-8.2); eGFR NON BLACK RACES > 60 (>60)
[2024-04-20 07:48] VITALS: O2SAT 95
--- NOTE | 2024-04-20 08:45 | PCM.PROG ---
Progress Note Progress Note for Day of Date of Exam: 04/19/24 Subjective Subjective: Patient seen at bedside, no acute events overnight. He is eating better today. He continues to work with PT/OT as tolerated. states he seems to be doing better. CM working on placement to [facility], awaiting pre-cert. Labs/imaging reviewed: -WBC 4.5 hemoglobin 11.4 sodium 136 potassium 3.4 creatinine 1.13 -Blood cultures x 1 contamination -Wound Cx: negative Plan: Continue megace. Encouraged PO intake. Continue antibiotics. Continue Ensure and probiotics. Continue pepcid. Continue wound care as per nursing. Continue current medications. Replace electrolytes as needed. Continue physical therapy as tolerated. CM working on discharge planning to SNF. Monitor AM labs/imaging. Past Medical Family Social History Allergies: Allergies No Known Drug Allergies Allergy (Unknown, Verified 04/12/24 16:49) Onset Date: 10/04/2017 Vital Signs and I&O's Vital Signs: Vital Signs Temperature 98.0 F Temperature 97.9 F Pulse Rate [Left Radial] 81 Pulse Rate [Left Radial] 76 Pulse Rate 71 Respiratory Rate 19 Respiratory Rate 16 Blood Pressure [Left Arm] 140/76 Blood Pressure [Left Arm] 135/69 O2 Sat by Pulse Oximetry 95 O2 Sat by Pulse Oximetry 92 O2 Sat by Pulse Oximetry 92 Intake and Output: Intake & Output 04/17/24 04/18/24 04/19/24 04/20/24 23:59 23:59 23:59 23:59 Intake Total 2504 / 2504 1664 / 1664 2849 / 2849 1109 / 1109 Output Total 2600 / 2600 1000 / 1000 Balance 2504 / 2504 -936 / -936 1849 / 1849 1109 / 1109 Physical Exam Oriented: Normal Eyes: Normal Ear: Normal Nose: Normal Throat: Normal Respiratory: Generalized and Diminished Cardiovascular: Normal : Normal Auscultation: Bowel Sounds: Normal Tenderness: Normal Skin: Wound and Other (heel ulcer dry, no surrounding erythema ) Musculoskeletal: Motor Deficit (lifting up bilateral lower extremities, able to move foot and toes, sensation intact ) Psychiatric: Normal Mood Description: Calm Affect: Normal Speech Pattern: Clear Laboratory and Diagnostics 04/20/24 05:30 04/20/24 05:30 Labs: 04/12/24 17:14 Blood Blood Culture Gram Stain - Final 04/12/24 17:14 Blood Blood Culture - Final 04/12/24 17:06 Blood Blood Culture - Final 04/16/24 13:35 Stool Stool Culture - Final 04/16/24 13:35 Stool - Final Laboratory WBC 3.9 X10^3/uL (3.6-10.0) 04/20/24 05:30 RBC 3.77 X10^6/uL (4.7-6.0) L 04/20/24 05:30 Hgb 11.4 g/dL (13.5-18.0) L 04/20/24 05:30 Hct 31.6 % (42.0-54.0) L 04/20/24 05:30 MCV 83.8 fL (80.0-100.0) 04/20/24 05:30 MCH 30.1 pg (27.0-34.0) 04/20/24 05:30 MCHC 36.0 g/dL (33.0-35.0) H 04/20/24 05:30 RDW 13.9 % (11.6-16.5) 04/20/24 05:30 Plt Count 166 X10^3/uL (150.0-450.0) 04/20/24 05:30 MPV 7.7 fL (7.4-11.0) 04/20/24 05:30 Neut % (Auto) 58.9 % (42.0-75.0) 04/20/24 05:30 Lymph % (Auto) 30.5 % (21.0-51.0) 04/20/24 05:30 [place] % (Auto) 8.6 % (0.0-13.0) 04/20/24 05:30 Eos % (Auto) 1.2 % (0.9-2.9) 04/20/24 05:30 Baso % (Auto) 0.8 % (0.2-1.0) 04/20/24 05:30 Neut # (Auto) 2.3 x10^3/uL (2.2-4.8) 04/20/24 05:30 Lymph # (Auto) 1.2 X10^3/uL (1.3-2.9) L 04/20/24 05:30 [place] # (Auto) 0.3 x10^3/uL (0.3-0.8) 04/20/24 05:30 Eos # (Auto) 0.0 x10^3/uL (0.0-0.2) 04/20/24 05:30 Baso # (Auto) 0.0 X10^3/uL (0.0-0.1) 04/20/24 05:30 Absolute Nucleated RBC 0.0 /100WBC 04/20/24 05:30 PT 14.9 SECONDS (11.8-14.3) 04/13/24 05:28 INR Target Range - 04/13/24 05:28 INR 1.20 (0.8-1.3) 04/13/24 05:28 APTT 28.8 SECONDS (22.9-36.5) 04/13/24 05:28 PTT Comment - 04/13/24 05:28 Sodium 136 mmol/L (136-145) 04/20/24 05:30 Corrected Sodium 137 mmol/L (136-145) 04/20/24 05:30 Potassium 3.7 mmol/L (3.5-5.1) 04/20/24 05:30 Chloride 102 mmol/L (98-107) 04/20/24 05:30 Carbon Dioxide 21.6 mmol/L (21-32) 04/20/24 05:30 BUN 15 mg/dL (7-18) 04/20/24 05:30 Creatinine 0.93 mg/dL (0.70-1.30) 04/20/24 05:30 Est GFR (MDRD) Af Amer > 60 (>60) 04/20/24 05:30 Est GFR (MDRD) Non-Af > 60 (>60) 04/20/24 05:30 Glucose 129 mg/dL (65-99) H 04/20/24 05:30 POC Glucose (mg/dL) 133 mg/dL (65-99) H 04/20/24 06:13 Calcium 8.3 mg/dL (8.5-10.1) L 04/20/24 05:30 Corrected Calcium 9.5 mg/dL (8.5-10.1) 04/20/24 05:30 Magnesium 2.2 mg/dL (2.0-2.9) 04/20/24 05:30 Total Bilirubin 0.30 mg/dL (0.2-1.0) 04/20/24 05:30 AST 18 Units/L (15-37) 04/20/24 05:30 ALT 35 Units/L (12-78) 04/20/24 05:30 Alkaline Phosphatase 68 Units/L (46-116) 04/20/24 05:30 Creatine Kinase 67 Units/L (39-308) 04/13/24 08:10 Troponin I High Sens 14.2 ng/L (4.0-60.0) 04/13/24 08:10 B-Natriuretic Peptide 40.6 pg/mL (0-79) 04/12/24 17:06 Total Protein 6.1 g/dL (6.4-8.2) L 04/20/24 05:30 Albumin 2.5 g/dL (3.4-5.0) L 04/20/24 05:30 Globulin 3.6 g/dL (2.5-4.5) 04/20/24 05:30 Albumin/Globulin Ratio 0.7 Ratio (1.1-2.1) L 04/20/24 05:30 Triglycerides 53 mg/dL (0-150) 04/13/24 05:28 Cholesterol < 50 mg/dL (0-200) 04/13/24 05:28 LDL Cholesterol, Calc 2 mg/dL (0-100) 04/13/24 05:28 HDL Cholesterol 37 mg/dL (40-60) L 04/13/24 05:28 Cholesterol/HDL Ratio 1.4 (0.0-5.0) 04/13/24 05:28 Specimen Type Clean catch urine 04/12/24 18:56 Urine Color Yellow (YELLOW) 04/12/24 18:56 Urine Appearance Clear (CLEAR) 04/12/24 18:56 Urine pH 6.0 (5.0 - 8.0) 04/12/24 18:56 Ur Specific [place] 1.020 (1.000-1.030) 04/12/24 18:56 Urine Protein 2+ (NEGATIVE) 04/12/24 18:56 Urine Glucose (UA) 4+ (NEGATIVE) 04/12/24 18:56 Urine Ketones 1+ (NEGATIVE) 04/12/24 18:56 Urine Blood 1+ (NEGATIVE) 04/12/24 18:56 Urine Nitrite Negative (NEGATIVE) 04/12/24 18:56 Urine Bilirubin Negative (NEGATIVE) 04/12/24 18:56 Urine Urobilinogen Normal (NORMAL) 04/12/24 18:56 Ur Leukocyte Esterase Negative (NEGATIVE) 04/12/24 18:56 Urine RBC 0-2 /HPF (0-3) 04/12/24 18:56 Urine WBC 0-2 /HPF (0-5) 04/12/24 18:56 Ur Squamous Epith Cells Rare /HPF (NEGATIVE) 04/12/24 18:56 Urine Bacteria Trace /HPF (NEGATIVE) 04/12/24 18:56 Urine Yeast Rare /HPF (NEGATIVE) 04/12/24 18:56 Ur Culture Indicated? No/not indicated 04/12/24 18:56 Stl Occult Blood (IFOB) Negative (NEGATIVE) 04/16/24 13:35 Stool for White Cells Negative (NEGATIVE) 04/16/24 13:35 Stl C. diff Tox B Gene Negative (NEGATIVE) 04/16/24 13:35 Stl C. diff [id number] Presumptive negative (NEGATIVE) 04/16/24 13:35 Vancomycin Trough 14.1 ug/mL (15-20) L 04/19/24 08:35 Random Vancomycin 24.1 ug/mL 04/18/24 08:40 Cryptosporid parvum Ag Negative (NEGATIVE) 04/16/24 13:35 Giardia lamblia Ag Negative (NEGATIVE) 04/16/24 13:35 Miscellaneous Test Levetiracetam 04/14/24 11:05 Plan (1) Decreased appetite: Status: Acute (2) Generalized weakness: Status: Acute (3) Non-healing wound of left heel: Status: Chronic (4) Dehydration: Status: Acute (5) Hypomagnesemia: Status: Acute (6) Anemia: Status: Chronic
[2024-04-20] MEDS: MIRALAX POWDER (1 DOSE 17 G) PO SCH (11:19)
[2024-04-20 11:54] VITALS: BP 149/75; PULSE 83; RESP 18; TEMP 97.8
== END 2024-04-20 14:40 ==
LOC: ER 16:15 → MED/SURG 16:15
PROVIDERS: ADMIT Family Medicine; ATTEND Internal Medicine
DX: R10.84 Generalized abdominal pain; R11.2 Nausea with vomiting, unspecified; L89.311 Pressure ulcer of right buttock, stage 1; L89.321 Pressure ulcer of left buttock, stage 1; R78.81 Bacteremia; E86.0 Dehydration; L89.622 Pressure ulcer of left heel, stage 2; R29.2 Abnormal reflex; Z68.23 Body mass index [BMI] 23.0-23.9, adult; Z58.89 Other problems related to physical environment; I25.10 Atherosclerotic heart disease of native coronary artery without angina pectoris; R94.31 Abnormal electrocardiogram [ECG] [EKG]; D64.89 Other specified anemias; R26.89 Other abnormalities of gait and mobility; R63.0 Anorexia; K59.09 Other constipation; R47.01 Aphasia; R53.1 Weakness; R41.82 Altered mental status, unspecified; E83.42 Hypomagnesemia; G45.8 Other transient cerebral ischemic attacks and related syndromes; I10 Essential (primary) hypertension; R00.0 Tachycardia, unspecified; Z79.01 Long term (current) use of anticoagulants; E11.65 Type 2 diabetes mellitus with hyperglycemia; E11.621 Type 2 diabetes mellitus with foot ulcer